=== PATIENT | male | born 1965 | race Caucasian/White ===

== ENCOUNTER 2019-05-17 15:25 | Emergency (ER) | payer OTHER, SELFPAY ==
[2019-05-17 15:35] VITALS: BP 164/90; PULSE 61; RESP 16; TEMP 36.8; O2SAT 98
--- NOTE | 2019-05-17 15:55 | ED.UPPEXIN ---
HPI - Extremity Injury (Upper) General Chief Complaint: Extremity Injury, Upper Stated Complaint: Left fore finger injury Time Seen by Provider: 05/17/19 15:55 Source: patient Mode of arrival: ambulatory Limitations: no limitations History of Present Illness HPI narrative: Lonnie Hayes is a 53 yo male with HTN, seasonal allergies, who had a large wood splinter in his left pointer finger across the palmar distal end, it has become infected. That initially happened 4 days ago. Other Extremity Injury: Left: hand (First finger of left hand) Handedness: right Place: home Severity: moderate Severity scale (1-10): 6 Relieving factors: none Context: laceration Related Data Home Medications Medication Instructions Recorded Confirmed cetirizine 10 mg tablet 10 mg PO DAILY 03/29/19 cholecalciferol (vitamin D3) 1,250 1,250 mcg PO MONTHLY 03/29/19 mcg (50,000 unit) tablet ibuprofen 200 mg tablet 200 mg PO Q6H PRN 03/29/19 Allergies Allergy/AdvReac Type Severity Reaction Status Date / Time No Known Allergies Allergy Unverified 03/29/19 11:13 Review of Systems Review of Systems: Narrative: CONSTITUTIONAL: Denies fever, chills, sweats. EYES: Denies visual changes, redness, discharge. ENT: Denies rhinorrhea, congestion, sore throat, otalgia. CARDIOVASCULAR: Denies chest pain, palpitations, edema. RESPIRATORY: Denies dyspnea, wheezing, cough GASTROINTESTINAL: Denies abdominal pain, nausea, vomiting, diarrhea. GENITOURINARY: Denies dysuria, hematuria, abnormal discharge SKIN: Denies rash or itching. Splinter in left pointer finger with infection NEUROLOGIC: Denies numbness, or focal weakness. PSYCHIATRIC: Denies anxiety or depression. [facility] Past Medical History Medical History Chest pain Cubital tunnel syndrome of both upper extremities Essential hypertension General medical exam Hypogonadism male Low vitamin D level Marijuana abuse Osteoarthritis of hip, unspecified Other terminal supervisor (current) drug therapy Overweight Pain in both hands Pain in left hand Pain of left hip joint Palpitations with regular cardiac rhythm Smoker Uncomplicated alcohol dependence Surgical History Surgical History History of tonsillectomy Family History Family History (Updated 05/17/19 @ 16:09 by Melissa Yang CNP) Other Diabetes mellitus Social History Social History Smoking status: Smoker, status unknown Second hand tobacco smoke exposure: Yes Comments At time of signature, I agree with nursing past medical, surgical, social and family history. There is no relevant family history pertinent to the presenting complaint. Exam Narrative: Exam Narrative: GENERAL: This is a well-nourished, well-developed patient, in mild distress. HEAD: normocephalic, atraumatic. EYES: Sclera clear/white. Vision is grossly intact. EARS: External ears normal, . Hearing grossly intact. NOSE: External nose normal with no obvious nasal discharge, nares without redness, no rhinorrhea. THROAT: Mucous membranes moist,. NECK: Neck supple, non-tender CARDIOVASCULAR: Regular rate and rhythm without murmurs, gallops, or rubs. RESPIRATORY: Clear to auscultation. Breath sounds equal bilaterally. No wheezes, rales, or rhonchi. GASTROINTESTINAL: Abdomen soft, SKIN: warm, intact with no suspicious lesions or rash, good texture and turgor. NEURO: awake, alert, and oriented to person, place and time. There were no obvious focal neurologic abnormalities. Steady gait EXTREMITIES: Normal range of motion. No edema. BACK: Nontender without deformity or crepitance. Course Course Emergency Course: Remove the remainder of splinter from left distal palmar tip, cleansed with normal saline and dressed with Neosporin and dry pressure dressing. Started on Keflex 500 mg 3 times daily x10 da
== END 2019-05-17 16:20 | disposition home or self-care (01) ==
PROVIDERS: Emergency Provider Nurse Practitioner; PCP Family Medicine
DX: L08.9 Local infection of the skin and subcutaneous tissue, unspecified (principal); I10 Essential (primary) hypertension; M16.10 Unilateral primary osteoarthritis, unspecified hip
CPT/HCPCS: 99213; G0463

== ENCOUNTER → 2019-07-18 10:36 | Outpatient (CLI) | payer OTHER, SELFPAY ==
--- NOTE | ~2019-07-18 | XR_ITS ---
EXAMINATION: XR chest 2V DATE: 07/18/2019 10:57 INDICATION: Nicotine dependence TECHNIQUE: PA and lateral views of the chest were obtained. COMPARISON: Chest radiograph dated 07/16/2018 FINDINGS: The lungs are clear with no focal airspace opacities, pulmonary edema, pleural effusion or pneumothor ax. Calcified granuloma versus bone island projecting over the T7 vertebral body on the lateral proje ction. The cardiomediastinal silhouette is normal. Mild thoracic spondylosis. IMPRESSION: 1. Clear lungs. No acute cardiopulmonary disease. Reviewed, dictated and finalized at location A.
== END ==
PROVIDERS: PCP Family Medicine; Visit Provider Family Medicine
DX: F17.200 Nicotine dependence, unspecified, uncomplicated (principal)
CPT/HCPCS: 71046

== ENCOUNTER 2019-07-29 06:13 | Outpatient (CLI) | payer OTHER, SELFPAY | END 2019-07-29 06:14 | disposition home or self-care (01) | PROVIDERS: PCP Family Medicine; Visit Provider Internal Medicine Gastroenterology | DX: Z01.812 Encounter for preprocedural laboratory examination (principal); Z20.828 Contact with and (suspected) exposure to other viral communicable diseases | CPT/HCPCS: 87635; U0003 ==

== ENCOUNTER 2019-07-31 01:03 | Day surgery (SDC) | payer OTHER, SELFPAY ==
[2019-07-26 13:13] VITALS: BMI 30.9
[2019-07-31 10:10] VITALS: BP 159/93; PULSE 88; RESP 20; TEMP 37.2; O2SAT 97
[2019-07-31] MEDS: LACTATED RINGERS 1,000 ML 150 ML IV CONT (10:23)
--- NOTE | 2019-07-31 10:51 | WPDANESEPPF ---
Anes - Initial Pre Proc Eval Procedure: Operation Date: 07/31/19 11:15 Proposed Procedures p Screening Colonoscopy - Young Fonseca MD Date/Time: 07/31/19 10:51 Surgeon: Young Fonseca MD Pre Op Diagnosis: Neoplasm Screening Patient Data Age: 53 Gender: M Height: 5 ft 9 in Weight: 93.4 kg Last Vital Signs Temp 98.9 F 07/31/19 10:10 Pulse 88 07/31/19 10:10 Resp 20 07/31/19 10:10 BP 159/93 H 07/31/19 10:10 Pulse Ox 97 07/31/19 10:10 Allergies Allergy/AdvReac Type Severity Reaction Status Date / Time No Known Allergies Allergy Verified 07/31/19 10:08 Home Medications Medication Instructions Recorded Confirmed Type amlodipine 5 mg tablet 5 mg PO DAILY #90 tablet 07/18/19 07/26/19 Rx cetirizine 10 mg tablet 10 mg PO DAILY #90 tablet 07/18/19 07/26/19 Rx gabapentin 300 mg capsule 300 mg PO DAILY #90 cap 07/18/19 07/26/19 Rx ibuprofen 800 mg tablet 800 mg PO TID PRN #90 tablet 07/18/19 07/26/19 Rx calcium carbonate-vitamin D3 1 cap PO DAILY 07/26/19 07/26/19 History [Calcium 600 with Vitamin D3] ergocalciferol (vitamin D2) 1,250 50,000 unit PO MONTHLY #20 cap 07/26/19 07/26/19 Rx mcg (50,000 unit) capsule peg 3350-electrolytes 236 240 ml PO Q10M #4000 ml 07/30/19 Rx gram-22.74 gram-6.74 gram-5.86 gram solution Patient hx anesthesia problems: none Family hx anesthesia problems: none PMFSH Social History Social History Smoking packs per day: 2.5 Smoking cigarettes per day: 50.0 Years smoked: 46 Smoking pack-years: 115.00 Smoking status: Current every day smoker Tobacco type: cigarettes Second hand tobacco smoke exposure: Yes Alcohol intake: current Drinks per week: 11 Anes - Eval Final PreProcedure Day of Procedure 07/31/19 10:51 Patient weight: normal Heart: regular rate and rhythm Lungs: clear to auscultation Airway: Mallampati scale class II Neurological: alert and oriented Last oral intake: >/= 8 hours ASA classification: III Emergent: no Anesthetic plan: proceed Anesthesia type and monitoring: general GIVS and standard monitoring Informed Consent: The patient's anesthetic plan and its attendant risks and benefits were discussed with the patient/family/POA. Questions were solicited and answers provided to the satisfaction of the patient/family/POA.
--- NOTE | 2019-07-31 11:10 | PM.HPGS ---
History of Present Illness History of Present Illness Consent: Risks, benefits, and alternatives have been discussed and questions answered. Patient agrees to proceed with procedure. Chief complaint: Neoplasm Screening Narrative: Lonnie Hayes is a 53 year old male here for his first screening colonoscopy Review of Systems Constitutional: Constitutional: Denies headache(s) and Denies weakness Eyes: Eyes: Denies blurry vision ENT: Reports Normal hearing present, Denies headache(s) and Denies neck pain Cardiovascular: Cardiovascular: Denies chest pain and Denies dyspnea Respiratory: Respiratory: Denies dyspnea Gastrointestinal: Gastrointestinal: Reports no additional gastrointestinal complaints Genitourinary: Genitourinary: Denies dysuria Musculoskeletal: Musculoskeletal: Denies neck pain Integumentary/Breasts: Skin/Breast: Denies dry skin Neurologic: Reports Normal hearing present, Denies headache(s) and Denies weakness Psychiatric: Psychiatric: Denies anxiety Endocrine: Endocrine: Denies change in body appearance Hematologic/Lymphatic: Hematologic/Lymphatic: Denies easy bleeding Allergic/Immunologic: Allergic/Immunologic: Denies urticaria PMFSH Social History Social History (Reviewed 07/26/19 @ 09:13 by Karime Gage [facility] [address]) Smoking packs per day: 2.5 Smoking cigarettes per day: 50.0 Years smoked: 46 Smoking pack-years: 115.00 Smoking status: Current every day smoker Tobacco type: cigarettes Second hand tobacco smoke exposure: Yes Alcohol intake: current Drinks per week: 11 Meds Home Medications and Allergies Home Medications Medication Instructions Recorded Confirmed Type amlodipine 5 mg tablet 5 mg PO DAILY #90 tablet 07/18/19 07/26/19 Rx cetirizine 10 mg tablet 10 mg PO DAILY #90 tablet 07/18/19 07/26/19 Rx gabapentin 300 mg capsule 300 mg PO DAILY #90 cap 07/18/19 07/26/19 Rx ibuprofen 800 mg tablet 800 mg PO TID PRN #90 tablet 07/18/19 07/26/19 Rx calcium carbonate-vitamin D3 1 cap PO DAILY 07/26/19 07/26/19 History [Calcium 600 with Vitamin D3] ergocalciferol (vitamin D2) 1,250 50,000 unit PO MONTHLY #20 cap 07/26/19 07/26/19 Rx mcg (50,000 unit) capsule peg 3350-electrolytes 236 240 ml PO Q10M #4000 ml 07/30/19 Rx gram-22.74 gram-6.74 gram-5.86 gram solution Allergies Allergy/AdvReac Type Severity Reaction Status Date / Time No Known Allergies Allergy Verified 07/31/19 10:08 Vital Signs Vital Signs - 24 hr 07/31/19 10:10 Temperature 98.9 F Pulse Rate 88 Respiratory Rate 20 Blood Pressure 159/93 H Pulse Oximetry 97 Exam Const: General: comfortable and no acute distress HENMT: General nose exam: Normal nares present Eyes: General: appearance normal, both eyes and all related structures Neck: Neck: no JVD Resp: Auscultation: clear to auscultation bilaterally Cardio: Rate: regular rate Rhythm: regular rhythm GI: Inspection: non-distended GI Palp: Yes Soft to palpation Skin: General skin exam: normal color Neuro: General: gait normal Speech: normal speech Extrem: General: normal to inspection Psych: Mental Status: mental status grossly normal Assessment and Plan Assessment and plan (1) Encounter for screening colonoscopy: Code(s): Z12.11 - Encounter for screening for malignant neoplasm of colon Status: Acute Assessment and Plan: will proceed with colonoscopy (2) Diabetes: Code(s): E11.9 - Type 2 diabetes mellitus without complications Status: Acute
[2019-07-31 11:43] VITALS: BP 116/84; PULSE 103; RESP 16; O2SAT 98
[2019-07-31 11:50] VITALS: BP 116/79; PULSE 88; RESP 16; O2SAT 99
[2019-07-31 12:00] VITALS: BP 140/82; PULSE 68; RESP 16; O2SAT 99
== END 2019-07-31 12:05 | disposition home or self-care (01) ==
PROVIDERS: PCP Family Medicine; Visit Provider Internal Medicine Gastroenterology
PROC: 0DJD8ZZ Inspection of Lower Intestinal Tract, Via Natural or Artificial Opening Endoscopic (ICD-10-PCS; CPT 45378; principal; 2019-07-31 11:15)
DX: Z12.11 Encounter for screening for malignant neoplasm of colon (principal); D12.5 Benign neoplasm of sigmoid colon; K57.30 Diverticulosis of large intestine without perforation or abscess without bleeding; F17.210 Nicotine dependence, cigarettes, uncomplicated
CPT/HCPCS: 45385; 88305; J2704; J7120

== ENCOUNTER 2019-08-16 08:58 | Outpatient (CLI) | payer OTHER, SELFPAY ==
--- NOTE | 2019-08-16 08:59 | ECG_ITS ---
Measurements Intervals [place] Rate: 59 P: 38 SC: 157 QRS: 5 QRSD: 93 T: 31 QT: 411 QTc: 410 Interpretive Statements SINUS BRADYCARDIA BORDERLINE R WAVE PROGRESSION, ANTERIOR LEADS BORDERLINE ECG Electronically Signed On 08-16-2019 9:43:15 CDT by Derrell Snow D.O.
== END 2019-08-16 08:59 | disposition home or self-care (01) ==
LOC: ANHSURGERY 08:59
PROVIDERS: PCP Family Medicine; Visit Provider Surgery
DX: Z01.818 Encounter for other preprocedural examination (principal); K40.90 Unilateral inguinal hernia, without obstruction or gangrene, not specified as recurrent; I10 Essential (primary) hypertension
CPT/HCPCS: 36415; 86850; 86900; 86901; 93005

== ENCOUNTER 2019-08-23 00:17 | Outpatient (CLI) | payer OTHER, SELFPAY ==
[2019-08-23 17:48] LABS: SARS-CoV-2 RNA PCR Negative
== END 2019-08-23 00:18 | disposition home or self-care (01) ==
LOC: ANHCOVIDDT 00:17
PROVIDERS: PCP Family Medicine; Visit Provider Surgery
DX: Z01.812 Encounter for preprocedural laboratory examination (principal); Z20.828 Contact with and (suspected) exposure to other viral communicable diseases
CPT/HCPCS: 87635; C9803; U0003

== ENCOUNTER 2019-08-26 01:31 | Day surgery (SDC) | payer OTHER, SELFPAY ==
[2019-08-26] VITALS (7 sets, daily range): BP systolic 114–146; BP diastolic 61–92; PULSE 55–70; RESP 14–20; TEMP 36.6–37.4; O2SAT 93–100
--- NOTE | 2019-08-26 09:36 | WPDHPUPDATE1 ---
History and Physical Update Update Date/Time: 08/26/19 09:36 History and Physical has been reviewed, including an updated exam of the patient. There are NO changes in the patient's condition. Risks, benefits, and alternatives have been discussed and questions answered. Patient agrees to proceed with procedure.
[2019-08-26] MEDS: LACTATED RINGERS 1,000 ML 30 ML IV CONT ×2 (10:00→12:18)
[2019-08-26] MEDS: IBUPROFEN IV 800 MG/200 ML 800 MG/200 ML BAG 400 MG IVPB (10:05)
--- NOTE | 2019-08-26 10:37 | WPDANESEPPF ---
Anes - Initial Pre Proc Eval Procedure: Operation Date: 08/26/19 11:30 Proposed Procedures p Robotic Assisted, Left Inguinal Hernia Repair With Mesh - Macie Sood MD Date/Time: 08/26/19 10:37 Surgeon: Macie Sood MD Pre Op Diagnosis: incarcerated Left inguinal hernia Patient Data Age: 53 Gender: M Height: 1.75 m Weight: 93.6 kg Last Vital Signs Temp 37.4 C 08/26/19 10:19 Pulse 62 08/26/19 10:19 Resp 20 08/26/19 10:19 BP 138/77 08/26/19 10:19 Pulse Ox 99 08/26/19 10:19 Allergies Allergy/AdvReac Type Severity Reaction Status Date / Time No Known Allergies Allergy Verified 08/14/19 13:02 Home Medications Medication Instructions Recorded Confirmed Type amlodipine 5 mg tablet 5 mg PO DAILY #90 tablet 07/18/19 08/26/19 Rx cetirizine 10 mg tablet 10 mg PO DAILY #90 tablet 07/18/19 08/26/19 Rx gabapentin 300 mg capsule 300 mg PO DAILY #90 cap 07/18/19 08/26/19 Rx ergocalciferol (vitamin D2) 1,250 50,000 unit PO MONTHLY #20 cap 07/26/19 08/14/19 Rx mcg (50,000 unit) capsule ibuprofen 800 mg PO BID PRN 08/14/19 08/26/19 History vitamin B complex 1 tablet PO DAILY 08/14/19 08/26/19 History Patient hx anesthesia problems: none Family hx anesthesia problems: none PMFSH Social History Social History (Updated 08/26/19 @ 10:36 by Neptali Romo DO) Smoking packs per day: 2.5 Smoking cigarettes per day: 50.0 Years smoked: 46 Smoking pack-years: 115.00 Smoking status: Current every day smoker Tobacco type: cigarettes Second hand tobacco smoke exposure: Yes Alcohol intake: current Alcohol use details: 6 pack and 0.5 pint tequilla/day Anes - Eval Final PreProcedure Day of Procedure 08/26/19 10:37 Patient weight: obese Heart: regular rate and rhythm Lungs: clear to auscultation and normal air movement Airway: Mallampati scale class II and other (teeth all implants) Neurological: alert and oriented Last oral intake: >/= 8 hours ASA classification: III Emergent: no Anesthetic plan: proceed Anesthesia type and monitoring: general ETT and standard monitoring Informed Consent: The patient's anesthetic plan and its attendant risks and benefits were discussed with the patient/family/POA. Questions were solicited and answers provided to the satisfaction of the patient/family/POA.
[2019-08-26] MEDS: ceFAZolin 2 GM/D5W 50 ML 2 GM/50 ML BAG IVPB (10:45)
[2019-08-26] MEDS: BUPIVACAINE/EPINEPHRINE 0.5% 30 ML VIAL INFILTRATE (11:40)
--- NOTE | 2019-08-26 12:22 | P.OP_ITS ---
Procedure Note - Detailed Date of procedure: 08/26/19 Pre-op diagnosis: incarcerated Left inguinal hernia Post-op diagnosis: same Procedure performed: robotic assisted left inguinal hernia repair Description of procedure: Patient was brought into the operating room and placed in the supine position. After adequate induction of general anesthesia, the patient was prepped and draped in normal sterile fashion. A time-out was then done to verify the patient's identity, as well as the procedure being performed. Began by making a 8 mm incision in the supraumbilical region, a Veress needle was then placed into the peritoneal cavity. CO2 gas was then insufflated and after adequate pneumoperitoneum was achieved, the Veress needle was removed. I then placed an 8 mm trocar through this incision. I then placed the endoscope through this trocar site and under direct visualization placed 2 further 8 mm ports in the right and left mid abdomen. The [employer] robot was then docked to the 3 trocar sites. I then scrubbed out and went to the robotic console. Upon examining the pelvis, it was noted that the patient had a incarcerated left inguinal hernia with a loop of small intestine. I was able to reduce the small intestine with gentle retraction out of the hernia. Once this was done, I began by making a preperitoneal flap approximately 6 cm superior to the defect. This flap was carried medially past the umbilical ligaments in laterally to the transversalis. It then began dissection of my medial compartment taking this down to the pubic tubercle. I then began the lateral dissection taking this down to the transversalis fascia. Once these compartments were achieved, I began dissection around the cord structures. It was noted at this point that the patient had a indirect hernia. Patient also had a large lipoma the cord. Using careful dissection, was able to reduce the lipoma cord as well separate the indirect hernia off the cord structures. Once this was adequately done, I went ahead and placed a 15 x 10 piece of Pro Guide Foreign Tour mesh into the abdominal cavity. The mesh was carefully positioned, centering the center of the mesh over the indirect defect. Once this was done, I was very satisfied with our tension free repair. I then closed the peritoneal flap with a running 2.0 V Lock suture. The abdomen was then desufflated, and all ports were removed. All incisions were then closed with the 4.0 monocryl suture. Dermabond was placed on each wound. The patient tolerated the procedure well, was extubated in the operating room postoperatively, and will now be transferred to the recovery room in stable condition. Implants: 15 x 10 progrip mesh Anesthesia: GETA Surgeon: Macie Sood MD Estimated blood loss (mL): 5 Drains: No Packing: No Pathology: none sent Complications: No immediate complications Condition: stable Disposition: PACU Findings: indirect LIH c incarcerated small intestine
== END 2019-08-26 13:53 | disposition home or self-care (01) ==
PROVIDERS: PCP Family Medicine; Visit Provider Surgery
PROC: 8E0Y4CZ Robotic Assisted Procedure of Lower Extremity, Percutaneous Endoscopic Approach (ICD-10-PCS; CPT 49650; principal; 2019-08-26 11:30)
DX: K40.30 Unilateral inguinal hernia, with obstruction, without gangrene, not specified as recurrent (principal); F17.210 Nicotine dependence, cigarettes, uncomplicated; E66.9 Obesity, unspecified; Z68.30 Body mass index [BMI] 30.0-30.9, adult
CPT/HCPCS: 49650; S2900; A9270; C1781; J0330; J0690; J1170; J1741; J2001; J2250; J2405; J2704; J3010; J7030; J7120

== ENCOUNTER 2020-09-07 11:15 | Outpatient (CLI) | payer OTHER, SELFPAY ==
[2020-09-07 19:20] LABS: Basophils Absolute Auto 0.1 K/mm3 (0.0-0.1); Eosinophils Absolute Auto 0.2 K/mm3 (0-0.3); Eosinophils Percent Auto 2.1 % (0-4.4); Hematocrit 47.2 % (42.0-52.0); Hemoglobin 15.5 g/dL (14.0-18.0); Lymphocytes Absolute Auto 3.04 K/mm3 (0.9-3.2); Mean Corpuscular HGB Conc 32.8 g/dl (32-36); Mean Corpuscular Hemoglobin 33.9 pg (26-34); Mean Corpuscular Volume 103.3 fl (80-100); Mean Platelet Volume 9.4 fl (7.4-10.4); Monocytes Absolute Auto 1.1 K/mm3 (0.1-0.6); Monocytes Percent Auto 10.3 % (2.6-8.5); Neutrophils Absolute Auto 5.9 K/mm3 (1.3-6.7); Neutrophils Percent Auto 56.6 % (45.5-73.1); Platelet Count Result 235 k/mm3 (150-375); Red Blood Count 4.57 M/mm3 (4.6-6.20); Red Cell Distribution Width 14.8 % (11.5-14.5); White Blood Count 10.5 K/mm3 (4.5-10.0)
[2020-09-07 19:23] LABS: Add Urine Microscopic? YES; Appearance Urine Clear (Clear); Bilirubin Urine 1+ (Negative); Blood Urine Negative (Negative); Color Urine Amber (Yellow); Glucose Urine UA Negative (Negative); Ketones Urine Trace mg/dL (Negative); Leukocyte Esterase Ur Negative LEU/UL (Negative); Mucus Urine Rare /lpf; Nitrate Urine Negative (Negative); Protein Urine 2+ mg/dL (Negative); RBC Urine 0-2 /hpf (0-2); Squamous Epithelial Cell Urine Rare /hpf (Few); WBC Urine 0-3 /hpf
[2020-09-07 19:25] LABS: Alanine Aminotransferase 42 U/L (4-50); Albumin Level 4.3 g/dL (3.5-5.1); Alkaline Phosphatase 117 U/L (38-126); Anion Gap 9 mmol/L (8-16); Aspartate Amino Transferase 58 U/L (17-59); Bilirubin,Total 1.4 mg/dL (0.2-1.3); Blood Urea Nitrogen 12 mg/dL (9-20); CRP 1.2 mg/dL (<1.0); Calcium 9.8 mg/dL (8.4-10.2); Carbon Dioxide 24 mmol/L (22-30); Chloride 106 mmol/L (98-107); Cholesterol 213 mg/dL (0-200); Estimated Glomerular Filt Rate > 60; Glucose 100 mg/dL (75-110); HDL Direct 55 mg/dL; Potassium 4.4 mmol/L (3.4-5.0); Sodium 139 mmol/L (137-145); Triglycerides 96 mg/dL (<150)
[2020-09-07 19:34] LABS: LDL Cholesterol Direct 129 mg/dL
[2020-09-07 19:53] LABS: Prostate Specific Antigen 0.5 ng/mL (< OR = 4.0)
[2020-09-07 20:07] LABS: Vitamin D 25 Hydroxy 18.9 ng/mL
[2020-09-07 20:27] LABS: Folic Acid 9.1 ng/mL (2.76->20)
== END 2020-09-07 11:16 | disposition home or self-care (01) ==
LOC: ANHBWCLAB 11:17
PROVIDERS: PCP Family Medicine; Visit Provider Family Medicine
DX: R79.89 Other specified abnormal findings of blood chemistry (principal); Z12.5 Encounter for screening for malignant neoplasm of prostate; F17.200 Nicotine dependence, unspecified, uncomplicated; I10 Essential (primary) hypertension; Z00.00 Encounter for general adult medical examination without abnormal findings; Z79.899 Other long term (current) drug therapy
CPT/HCPCS: 36415; 80053; 80061; 81001; 82306; 82607; 82746; 84153; 84443; 85025; 86140; G0103

== ENCOUNTER 2021-08-23 12:43 | Outpatient (CLI) | payer OTHER, SELFPAY ==
[2021-08-23 19:13] LABS: Alanine Aminotransferase 75 U/L (6-50); Albumin Level 3.6 g/dL (3.5-5.1); Alkaline Phosphatase 160 U/L (38-126); Anion Gap 5 mmol/L (8-16); Aspartate Amino Transferase 160 U/L (17-59); Bilirubin,Total 0.9 mg/dL (0.2-1.3); Blood Urea Nitrogen 7 mg/dL (9-20); Calcium 8.4 mg/dL (8.4-10.2); Carbon Dioxide 28 mmol/L (22-30); Chloride 105 mmol/L (98-107); Cholesterol 216 mg/dL (0-200); Estimated Glomerular Filt Rate > 60; Glucose 112 mg/dL (65-110); HDL Direct 53 mg/dL; Potassium 3.4 mmol/L (3.4-5.0); Sodium 138 mmol/L (137-145); Triglycerides 122 mg/dL (<150)
[2021-08-23 19:24] LABS: LDL Cholesterol Direct 145 mg/dL
[2021-08-23 19:25] LABS: Basophils Absolute Auto 0.1 K/mm3 (0.0-0.1); Basophils Percent Auto 1.5 % (0.2-1.2); Eosinophils Absolute Auto 0.2 K/mm3 (0-0.3); Eosinophils Percent Auto 2.3 % (0-4.4); Hemoglobin 15.4 g/dL (14.0-18.0); Immature Granulocyte Absolute 0.03 K/mm3 (0.00-0.031); Immature Granulocyte Percent A 0.5 % (0-0.5); Lymphocytes Absolute Auto 2.28 K/mm3 (0.9-3.2); Lymphocytes Percent Auto 34.4 % (18.3-44.2); Mean Corpuscular HGB Conc 34.2 g/dl (32-36); Mean Corpuscular Hemoglobin 35.5 pg (26-34); Mean Corpuscular Volume 103.7 fl (80-100); Mean Platelet Volume 9.9 fl (7.4-10.4); Monocytes Absolute Auto 0.6 K/mm3 (0.1-0.6); Monocytes Percent Auto 9.4 % (2.6-8.5); Neutrophils Absolute Auto 3.4 K/mm3 (1.3-6.7); Neutrophils Percent Auto 51.9 % (45.5-73.1); Platelet Count Result 179 k/mm3 (150-375); Red Blood Count 4.34 M/mm3 (4.6-6.20); Red Cell Distribution Width 14.7 % (11.5-14.5); White Blood Count 6.6 K/mm3 (4.5-10.0)
[2021-08-23 19:28] LABS: Microalbumin Urine Random 35.8 mg/L (0-16.7)
[2021-08-23 19:42] LABS: Vitamin D 25 Hydroxy 20.1 ng/mL
[2021-08-23 20:00] LABS: Creatinine Urine 490.6 mg/dL; MALB Creatinine Ratio 7.3 mg/g (0-30)
[2021-08-23 23:13] LABS: Hemoglobin A1C 5.4 % (<5.7)
[2021-08-27 18:55] LABS: Testosterone Free 27.4 pg/mL (35.0-155.0); Testosterone Total 240 ng/dL (250-1100)
== END 2021-08-23 12:44 | disposition home or self-care (01) ==
PROVIDERS: PCP Family Medicine; Visit Provider Family Medicine
DX: D72.829 Elevated white blood cell count, unspecified (principal); R79.89 Other specified abnormal findings of blood chemistry; E11.9 Type 2 diabetes mellitus without complications
CPT/HCPCS: 36415; 80053; 80061; 82043; 82306; 83036; 84402; 84403; 85025

== ENCOUNTER 2021-08-24 14:42 | Outpatient (CLI) | payer OTHER, SELFPAY ==
[2021-08-24 19:28] LABS: Hepatitis B Surface Antigen Negative (Negative)
[2021-08-24 19:34] LABS: HAV RESULT Negative (Negative); Hepatitis B Core IgM Result Negative (Negative)
[2021-08-24 19:46] LABS: Hepatitis C Virus Antibody Negative (Negative)
== END 2021-08-24 14:43 | disposition home or self-care (01) ==
PROVIDERS: PCP Family Medicine; Visit Provider Family Medicine
DX: R74.8 Abnormal levels of other serum enzymes (principal)
CPT/HCPCS: 36415; 80074

== ENCOUNTER 2021-12-08 10:07 | Outpatient (CLI) | payer OTHER, SELFPAY ==
[2021-12-08 18:54] LABS: Alanine Aminotransferase 46 U/L (6-50); Alkaline Phosphatase 150 U/L (38-126); Aspartate Amino Transferase 109 U/L (17-59); Bilirubin,Total 0.9 mg/dL (0.2-1.3)
[2021-12-10 12:36] LABS: Sex Hormone Binding Globulin 35 nmol/L (22-77)
[2021-12-11 21:50] LABS: Testosterone Free 38.9 pg/mL (35.0-155.0); Testosterone Total 295 ng/dL (250-1100)
[2021-12-12 07:11] LABS: Prolactin 4.5 ng/mL (***)
[2021-12-12 22:05] LABS: PSA, Free 0.19 ng/mL; PSA, Total 0.6 ng/mL (<=4.0)
== END 2021-12-08 10:08 | disposition home or self-care (01) ==
LOC: ANHBWCLAB 10:08
PROVIDERS: PCP Family Medicine; Visit Provider Family Medicine
DX: R74.8 Abnormal levels of other serum enzymes (principal); R79.89 Other specified abnormal findings of blood chemistry
CPT/HCPCS: 36415; 80076; 84146; 84153; 84154; 84270; 84402; 84403

== ENCOUNTER 2022-10-06 07:59 | Outpatient (CLI) | payer OTHER, SELFPAY ==
[2022-10-06 19:49] LABS: Alanine Aminotransferase 41 U/L (6-50); Albumin Level 3.8 g/dL (3.5-5.1); Alkaline Phosphatase 116 U/L (38-126); Aspartate Amino Transferase 115 U/L (17-59); Bilirubin,Total 0.9 mg/dL (0.2-1.3)
[2022-10-06 19:59] LABS: Anion Gap 7 mmol/L (8-16); Blood Urea Nitrogen 8 mg/dL (9-20); Calcium 9.8 mg/dL (8.4-10.2); Carbon Dioxide 28 mmol/L (22-30); Chloride 103 mmol/L (98-107); Cholesterol 207 mg/dL (0-200); Estimated Glomerular Filt Rate > 60; Glucose 101 mg/dL (65-110); HDL Direct 29 mg/dL; Potassium 3.6 mmol/L (3.4-5.0); Sodium 138 mmol/L (137-145); Triglycerides 93 mg/dL (<150)
[2022-10-06 20:03] LABS: Hemoglobin A1C 5.8 % (<5.7)
[2022-10-06 20:10] LABS: LDL Cholesterol Direct 145 mg/dL
[2022-10-06 20:12] LABS: Vitamin D 25 Hydroxy 23.3 ng/mL
[2022-10-06 20:15] LABS: Basophils Absolute Auto 0.1 K/mm3 (0.0-0.1); Basophils Percent Auto 1.4 % (0.2-1.2); Eosinophils Absolute Auto 0.3 K/mm3 (0-0.3); Eosinophils Percent Auto 2.8 % (0-4.4); Hematocrit 49.7 % (42.0-52.0); Immature Granulocyte Absolute 0.05 K/mm3 (0.00-0.031); Immature Granulocyte Percent A 0.5 % (0-0.5); Lymphocytes Absolute Auto 2.79 K/mm3 (0.9-3.2); Lymphocytes Percent Auto 30.2 % (18.3-44.2); Mean Corpuscular HGB Conc 32.2 g/dl (32-36); Mean Corpuscular Hemoglobin 36.7 pg (26-34); Mean Platelet Volume 9.8 fl (7.4-10.4); Monocytes Absolute Auto 0.8 K/mm3 (0.1-0.6); Monocytes Percent Auto 8.4 % (2.6-8.5); Neutrophils Absolute Auto 5.2 K/mm3 (1.3-6.7); Neutrophils Percent Auto 56.7 % (45.5-73.1); Platelet Count Result 275 k/mm3 (150-375); Red Blood Count 4.36 M/mm3 (4.6-6.20); Red Cell Distribution Width 14.5 % (11.5-14.5); White Blood Count 9.3 K/mm3 (4.5-10.0)
[2022-10-06 20:41] LABS: Burr Cells 1+ (NORMAL); Macrocytosis 1+ (NORMAL); Platelet Estimate Adequate (Adequate); Schistocytes None Seen (NORMAL)
[2022-10-06 21:00] LABS: Folic Acid 8.7 ng/mL (2.76->20)
[2022-10-11 17:23] LABS: Testosterone Free 39.9 pg/mL (35.0-155.0); Testosterone Total 264 ng/dL (250-1100)
== END 2022-10-06 08:00 | disposition home or self-care (01) ==
PROVIDERS: Nurse Practitioner Adult Health; PCP Family Medicine; Visit Provider Family Medicine
DX: R79.89 Other specified abnormal findings of blood chemistry (principal); R74.8 Abnormal levels of other serum enzymes; I10 Essential (primary) hypertension; E66.9 Obesity, unspecified; F10.10 Alcohol abuse, uncomplicated
CPT/HCPCS: 36415; 80048; 80061; 80076; 82306; 82607; 82746; 83036; 84402; 84403; 85025

== ENCOUNTER 2023-04-06 08:28 | Outpatient (CLI) | payer OTHER, SELFPAY ==
[2023-04-06 19:08] LABS: Basophils Absolute Auto 0.1 K/mm3 (0.0-0.1); Basophils Percent Auto 1.4 % (0.2-1.2); Eosinophils Absolute Auto 0.2 K/mm3 (0-0.3); Eosinophils Percent Auto 3.5 % (0-4.4); Hematocrit 49.3 % (42.0-52.0); Hemoglobin 15.8 g/dL (14.0-18.0); Immature Granulocyte Absolute 0.04 K/mm3 (0.00-0.031); Immature Granulocyte Percent A 0.6 % (0-0.5); Lymphocytes Percent Auto 36.2 % (18.3-44.2); Mean Corpuscular Hemoglobin 34.4 pg (26-34); Mean Corpuscular Volume 107.4 fl (80-100); Mean Platelet Volume 9.6 fl (7.4-10.4); Monocytes Absolute Auto 0.8 K/mm3 (0.1-0.6); Neutrophils Absolute Auto 3.3 K/mm3 (1.3-6.7); Neutrophils Percent Auto 47.3 % (45.5-73.1); Platelet Count Result 199 k/mm3 (150-375); Red Blood Count 4.59 M/mm3 (4.6-6.20); Red Cell Distribution Width 14.2 % (11.5-14.5); White Blood Count 6.9 K/mm3 (4.5-10.0)
[2023-04-06 19:27] LABS: Alanine Aminotransferase 27 U/L (6-50); Albumin Level 4.3 g/dL (3.5-5.1); Alkaline Phosphatase 119 U/L (38-126); Anion Gap 10 mmol/L (8-16); Aspartate Amino Transferase 57 U/L (17-59); Bilirubin,Total 0.7 mg/dL (0.2-1.3); Blood Urea Nitrogen 6 mg/dL (9-20); Calcium 9.6 mg/dL (8.4-10.2); Carbon Dioxide 22 mmol/L (22-30); Chloride 108 mmol/L (98-107); Cholesterol 210 mg/dL (0-200); Estimated Glomerular Filt Rate > 60; Glucose 102 mg/dL (65-110); HDL Direct 47 mg/dL; Magnesium 1.9 mg/dL (1.6-2.3); Potassium 3.7 mmol/L (3.4-5.0); Sodium 140 mmol/L (137-145); Triglycerides 97 mg/dL (<150)
[2023-04-06 19:31] LABS: Macrocytosis 1+ (NORMAL); Platelet Estimate Adequate (Adequate); Schistocytes None Seen (NORMAL)
[2023-04-06 19:38] LABS: LDL Cholesterol Direct 135 mg/dL
[2023-04-06 19:44] LABS: Vitamin D 25 Hydroxy 27.6 ng/mL
[2023-04-06 19:53] LABS: Hemoglobin A1C 5.8 % (<5.7)
== END 2023-04-06 08:29 | disposition home or self-care (01) ==
LOC: ANHBWCLAB 08:30
PROVIDERS: PCP Nurse Practitioner Adult Health; Visit Provider Nurse Practitioner Adult Health
DX: R79.89 Other specified abnormal findings of blood chemistry (principal); I10 Essential (primary) hypertension; E11.9 Type 2 diabetes mellitus without complications; F10.10 Alcohol abuse, uncomplicated
CPT/HCPCS: 36415; 80048; 80061; 80076; 82306; 83036; 83735; 84443; 85025

== ENCOUNTER 2024-04-10 15:35 | Outpatient (CLI) | payer OTHER, SELFPAY ==
--- OUTSIDE RECORDS SUMMARY | 2024-04-10 16:20 | XMS_ITS | Patient Health Summary ---
Author Organization [facility] Address [address] [place] [address] Care Team Providers Care Outbound Sales Specialist Name Role Phone Tavia Osman Primary Care Provider [phone] Note from [facility],non-owned Affiliates and Associated Physician Practices is amultiple site organization consisting of ambulatory clinics and hospital sitesin [place], [place], [place] and [place]. This disclosure is being madepursuant to the Care Everywhere program and may not contain all information available regarding this patient. Last updated 17.[facility] Allergies No known active allergies Medications * Be aware that medications may not be up to date on this document. Alwaysverify current medications with the patient. * Ergocalciferol (VITAMIN D2 PO)(Started 04/15/2020) Take 1,250 mcg by mouth once daily * amLODIPine (NORVASC) 5 MG tablet(Started 09/09/2020) Take 5 mg by mouth once daily * cetirizine (ZYRTEC) 10 MG tablet(Started 11/02/2020) * gabapentin (NEURONTIN) 300 MG capsule(Started 11/02/2020) * hydroCHLOROthiazide (HYDRODIURIL) 12.5 MG(Started 11/02/2020) * ibuprofen (MOTRIN) 800 MG tablet(Started 11/19/2020) * potassium chloride ER (KLOR-CON) 10 MEQ tablet(Started 11/02/2020) * Cyanocobalamin (B-12 PO) * cyclobenzaprine (FLEXERIL) 10 MG tablet(Started 11/23/2020) Take 1 (one) tablet by mouth at bedtime 2 refills by 11/23/2021 * allopurinol (ZYLOPRIM) 100 MG tablet(Started 12/03/2020) Take 1 (one) tablet by mouth once daily 4 refills by 12/03/2021 Active Problems Problem Noted Date Diagnosed Date Arthralgia 11/24/2020 Other specified abnormal immunological findings in serum 11/24/2020 Immunizations * Covid Moderna primary monovalent 12+ yr 0.5mL(Given 08/18/2020, 07/21/2020) Social History Tobacco Use Types Packs/Day Years Used Date Smoking Tobacco: Heavy Smoker Cigarettes 2 15 Smokeless Tobacco: Never Alcohol Use Standard Drinks/Week Comments Yes 56 (1 standard drink = 0.6 oz pu re alcohol) approx. 8 per day PHQ-2 Answer Date Recorded PHQ2 TOTAL SCORE 2 11/23/2020 Sex and Gender Information Value Date Recorded Sex Assigned at Not on file Gender Identity Not on file Sexual Orientation Not on file Last Filed Vital Signs Vital Sign Reading Time Taken Comments Blood Pressure 170/100 11/23/2020 12:42 PM CDT Pulse - - Temperature 36.9 ??C (98.4 ??F) 11/23/2020 12:42 PM C DT Respiratory Rate - - Oxygen Saturation - - Inhaled Oxygen Concentration - - Weight 120.2 kg (265 lb) 11/23/2020 12:42 PM CDT Height 175.3 cm (5' 9 ) 11/23/2020 12:42 PM CDT Body Mass Index 39.13 11/23/2020 12:42 PM CDT Procedures * MRI SACRUM SI JOINTS W WO CONT(Performed 12/19/2020) Performed for Arthralgia, unspecified joint, SI (sacroiliac) pain * CREATININE - POCT INTERFACED(Performed 12/19/2020) * XR SHOULDER RIGHT 2VW OR MORE(Performed 11/24/2020) Performed for Arthralgia, unspecified joint, Other specified abnormal immunological findings in serum * XR SHOULDER LEFT 2VW OR MORE(Performed 11/24/2020) Performed for Arthralgia, unspecified joint, Other specified abnormal immunological findings in serum * XR PELVIS W BILAT HIP 2VW(Performed 11/24/2020) Performed for Arthralgia, unspecified joint, Other specified abnormal immunological findings in serum * XR KNEE RIGHT 3VW(Performed 11/24/2020) Performed for Arthralgia, unspecified joint, Other specified abnormal immunological findings in serum * XR KNEE LEFT 3VW(Performed 11/24/2020) Performed for Arthralgia, unspecified joint, Other specified abnormal immunological findings in serum * XR FOOT LEFT 2VW(Performed 11/24/2020) Performed for Arthralgia, unspecified joint, Other specified abnormal immunological findings in serum * XR FOOT RIGHT 2VW(Performed 11/24/2020) Performed for Arthralgia, unspecified joint, Other specified abnormal immunological findings in serum * XR HAND RIGHT 2VW(Performed 11/24/2020) Performed for Arthralgia, unspecified joint, Other specified abnormal immunological findings in serum * XR HAND LEFT 2VW(Performed 11/24/2020) Performed for Arthralgia, unspecified joint, Other specified abnormal immunological findings in serum * SS-A (SJOGREN'S) 52+60 ANTIBODIES(Performed 11/24/2020) Performed for Other specified abnormal immunological findings in serum, Arthralgia, unspecified joint * HEPATITIS C ANTIBODY(Performed 11/24/2020) Performed for Arthralgia, unspecified joint, Other specified abnormal immunological findings in serum * HEPATITIS B CORE ANTIBODY TOTAL(Performed 11/24/2020) Performed for Arthralgia, unspecified joint, Other specified abnormal immunological findings in serum * HEPATITIS B SURFACE ANTIBODY(Performed 11/24/2020) Performed for Arthralgia, unspecified joint, Other specified abnormal immunological findings in serum * QUANTIFERON-TB GOLD PLUS 4-TUBE(Performed 11/24/2020) Performed for Arthralgia, unspecified joint, Other specified abnormal immunological findings in serum * URIC ACID BLOOD(Performed 11/24/2020) Performed for Arthralgia, unspecified joint, Other specified abnormal immunological findings in serum * SS-B (SJOGREN'S) ANTIBODY(Performed 11/24/2020) Performed for Arthralgia, unspecified joint, Other specified abnormal immunological findings in serum * RHEUMATOID FACTOR BLOOD QUANTITATIVE(Performed 11/24/2020) Performed for Arthralgia, unspecified joint, Other specified abnormal immunological findings in serum * CYCLIC CITRUL PEPTIDE ANTIBODY IGG/IGA (CCP)(Performed 11/24/2020) Performed for Arthralgia, unspecified joint, Other specified abnormal immunological findings in serum * URINALYSIS W/MICROSCOPIC NO CULTURE(Performed 11/24/2020) Performed for Arthralgia, unspecified joint, Other specified abnormal immunological findings in serum * CBC W AUTO DIFFERENTIAL(Performed 11/24/2020) Performed for Arthralgia, unspecified joint, Other specified abnormal immunological findings in serum * ERYTHROCYTE SEDIMENTATION RATE(Performed 11/24/2020) Performed for Arthralgia, unspecified joint, Other specified abnormal immunological findings in serum * C-REACTIVE PROTEIN(Performed 11/24/2020) Performed for Arthralgia, unspecified joint, Other specified abnormal immunological findings in serum * COMPREHENSIVE METABOLIC PANEL(Performed 11/24/2020) Performed for Arthralgia, unspecified joint, Other specified abnormal immunological findings in serum Results * MRI SACRUM SI JOINTS WWO CONT (12/19/2020 8:41 AM CDT) Anatomical Region Laterality Modality Pelvis Magnetic Resonan ce 12/21/2020 7:43 AM CDT Impressions 12/21/2020 8:01 AM CDT IMPRESSION: 1. Findings consistent with sacroiliac joint osteoarthritis, left greater than right. 2. 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 The lesion is not well visualized on radiographs, therefore follow-up with right hip MRI with and without contrast is recommended in 6 months to ensure stability. 3. Moderate left and mild right gluteus medius tendinosis. 4. Left trochanteric bursitis. 5. Moderate bilateral proximal hamstring tendinosis. 6. A 3.5 cm exophytic right kidney lesion, likely a cyst. This report was electronically signed by NEPTALI NIEVES MD ??on 12/21/2020 8:01 AM . Narrative 12/21/2020 8:01 AM CDT Exam: ??MRI SACRUM SI JOINTS WWO CONT History: ??M25.50: Arthralgia, unspecified joint M53.3: SI (sacroiliac) pain TECHNIQUE: Images were obtained in multiple planes using multiple sequences before and after administration of 10 mL Gadavist contrast according to the sacroiliac joint protocol. Comparison: Pelvic radiograph dated 11/24/2020. Findings: There is moderate anterior osteophyte formation at the mid to upper aspect of the left sacroiliac joint. There is mild associated sclerosis, bone marrow edema, and adjacent soft tissue edema. This corresponds to the area of sclerosis demonstrated on the radiograph. No bone lesion is identified at this location. There are similar changes to a mild degree at the mid to upper aspect of the right sacroiliac joint. Small subchondral cysts are seen in the posterior aspects of the iliac bones at the inferior aspects of the sacroiliac joints (series 4 image 23-24). ??These findings likely represent osteoarthritis. No erosions are seen. There is ankylosis. There is otherwise no bone marrow edema or abnormal enhancement to suggest inflammatory sacroiliitis of either joint. There is no pelvic fracture. Bone marrow signal is heterogeneous and moderately decreased on the T1-weighted images which may reflect red marrow. There is no hip effusion on either side. There is no femoral head avascular necrosis. There is no hip arthritis. A 1.4 x 0.9 cm bone lesion is present in the intertrochanteric region of the right femur (series 3 image 24). It is mildly lobulated and is hyperintense on the T2-weighted images peripherally with central hypointensity. The lesion is visible on the wide afacl-pi-qeuk T2 and STIR images but is not included on the post contrast imaging. There is moderate increased signal intensity within the proximal hamstring tendons consistent with. There is edema and small amount of fluid adjacent to the left greater trochanter consistent with trochanteric bursitis. There is increased signal within the left gluteus medius tendon consistent with moderate tendinosis, and more mild signal change in the right gluteus medius tendon. There is no free pelvic fluid or lymphadenopathy. On the wide gfpyk-ac-mzkh coronal STIR images at 3.5 cm exophytic lesion is seen arising from the lower pole of the right kidney (series 3 image 17), likely a cyst. Procedure Note Neptali Nieves MD - 12/21/2020 Exam: MRI SACRUM SI JOINTS WWO CONT History: M25.50: Arthralgia, unspecified joint M53.3: SI (sacroiliac) pain TECHNIQUE: Images were obtained in multiple planes using multiple sequences before and after administration of 10 mL Gadavist contrast according to the sacroiliac joint protocol. Comparison: Pelvic radiograph dated 11/24/2020. Findings: There is moderate anterior osteophyte formation at the mid to upperaspect of the left sacroiliac joint. There is mild associated sclerosis, bone marrow edema, and adjacent soft tissue edema. This corresponds to thearea of sclerosis demonstrated on the radiograph. No bone lesion isidentified at this location. There are similar changes to a mild degree at the midto upper aspect of the right sacroiliac joint. Small subchondral cysts are seen in the posterior aspects of the iliac bones at the inferior aspects of the sacroiliac joints (series 4 image 23-24). These findings likely represent osteoarthritis. No erosions are seen. There is ankylosis.There is otherwise no bone marrow edema or abnormal enhancement to suggest inflammatory sacroiliitis of either joint. There is no pelvic fracture. Bone marrow signal is heterogeneous and moderately decreased on the T1-weighted images which may reflect red marrow. There is no hip effusion on either side. There is no femoral head avascular necrosis. There is no hip arthritis. A 1.4 x 0.9 cm bone lesion is present in the intertrochanteric region of the right femur (series 3 image 24). It is mildly lobulated and is hyperintense on the T2-weighted images peripherally with central hypointensity. The lesion is visible on the wide oiest-fl-eafm T2 andSTIR images but is not included on the post contrast imaging. There is moderate increased signal intensity within the proximalhamstring tendons consistent with. There is edema and small amount of fluidadjacent to the left greater trochanter consistent with trochanteric bursitis. There is increased signal within the left gluteus medius tendonconsistent with moderate tendinosis, and more mild signal change in the rightgluteus medius tendon. There is no free pelvic fluid or lymphadenopathy. On the wide cczpq-fg-ipam coronal STIR images at 3.5 cm exophytic lesion is seen arising from the lower pole of the right kidney (series 3 image 17), likely a cyst. IMPRESSION: 1. Findings consistent with sacroiliac joint osteoarthritis, leftgreater than right. 2. 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 The lesion is not well visualized on radiographs, therefore follow-up with right hip MRI with and without contrast is recommended in6 months to ensure stability. 3. Moderate left and mild right gluteus medius tendinosis. 4. Left trochanteric bursitis. 5. Moderate bilateral proximal hamstring tendinosis. 6. A 3.5 cm exophytic right kidney lesion, likely a cyst. This report was electronically signed by NEPTALI NIEVES MD on 12/21/2020 8:01 AM . Christel Ramos MD MR ORDERABLES * CREATININE - POCT INTERFACED (12/19/2020 7:47 AM CDT) Creatinine POCT 0.80 0.30 - 1.30 mg/dL 12/19/2020 10:36 AM CDT [facility] eGFR >60 >60 mL/min/1.7 3 m2 12/19/2020 10:36 AM CDT [facility] Blood BLOOD SPECIMEN / Unknown 12/19/2020 7:47 AM CDT 12/19/2020 10:36 AM CDT Christel Ramos MD LAB - POINT OF CARE ORDERABLES Performing Organization Address City/State/[facility] Co de Phone Number [address] [id number], [facility] [phone] * XR KNEE RIGHT 3VW (11/24/2020 10:24 AM CDT) Anatomical Region Laterality Modality Lower Extremity Radiographic Shauna ging 11/24/2020 10:2 5 AM CDT Impressions 11/24/2020 11:00 AM CDT IMPRESSION: 1. Right and left shoulders: Mild acromioclavicular osteoarthritis bilaterally. 2. Right and left knees: Normal. 3. Right and left hands: Normal. 4. Right foot: Mild osteoarthritis at the first metatarsophalangeal joint. 5. Left foot: Chronic healed fracture of the fifth proximal phalanx. No significant arthritis. 6. Pelvis and bilateral hips: Normal hips. A 3 cm focal area of sclerosis in region of the mid to upper aspect of the left sacroiliac joint. Differential diagnosis includes joint related sclerosis (osteoarthritis or sacroiliitis) versus a sclerotic bone lesion. Recommend comparison to prior imaging of this area, if available. Otherwise MRI of the pelvis with and without contrast could be performed for characterization. Alternatively follow-up radiographs would be recommended in 3 months to ensure stability. Dictated by Daniel Garcia MD (certified residential medication aide). I, Dr. NEPTALI NIEVES MD have personally reviewed and interpreted this examination/study. This report was electronically signed by NEPTALI NIEVES MD ??on 11/24/2020 11:00 AM . Narrative 11/24/2020 11:00 AM CDT EXAMINATION: 1.XR SHOULDER RIGHT 3VW 2.XR SHOULDER LEFT 3VW 3.XR PELVIS W BILAT HIP 2VW 4.XR KNEE RIGHT 3VW 5.XR KNEE LEFT 3VW 6.XR FOOT LEFT 2VW 7.XR FOOT RIGHT 2VW 8.XR HAND LEFT 2VW 9.XR HAND RIGHT 2VW HISTORY: M25.50: Arthralgia, unspecified joint R76.8: Other specified abnormal immunological findings in serum COMPARISON: No prior study is available for comparison. FINDINGS: Right shoulder: The osseous structures are intact without acute fracture. Small cyst is demonstrated in the humeral head. The glenohumeral and acromioclavicular joints are in anatomic alignment. Mild osteoarthritis of the acromioclavicular joint. Bone density and texture are normal. ??No erosions demonstrated. 4 mm sclerotic lesion in the proximal humerus is consistent with a bone island. Left shoulder: The osseous structures are intact without acute fracture. The glenohumeral and acromioclavicular joints are in anatomic alignment. Mild osteoarthritis of the acromioclavicular joint. Bone density and texture are normal. ??No erosions demonstrated. Right hand: The osseous structures are intact and well aligned without acute fracture or dislocation. The joint spaces are preserved. Bone density and texture are normal. No erosions demonstrated.Diffuse soft tissue swelling is present. Left hand: The osseous structures are intact and well aligned without acute fracture or dislocation. The joint spaces are preserved. Bone density and texture are normal. No erosions demonstrated.Diffuse soft tissue swelling is present. Pelvis with bilateral hips: There is no fracture or dislocation of either hip. The joint spaces are normal. There are no erosions. The pelvic radiograph demonstrates no fracture. A 3 cm focal area of sclerosis is seen in the region of the mid to upper left sacroiliac joint. The pubic symphysis is normal. Right knee: The osseous structures are intact and well aligned without acute fracture or dislocation. The knee joint space is preserved. No joint effusion is seen. Bone density and texture are normal. Left knee: The osseous structures are intact and well aligned without acute fracture or dislocation. The knee joint space is preserved. No joint effusion is seen. No erosions demonstrated.Bone density and texture are normal. Right foot: The osseous structures are intact and well aligned without acute fracture or dislocation. Mild osteoarthritis of the first metatarsophalangeal joint. Otherwise the joint spaces are preserved. Bone density and texture are normal. No erosions demonstrated. No soft tissue swelling is present. Left foot: The osseous structures are intact and well aligned without acute fracture or dislocation. There is mild deformity of the fifth toe proximal phalanx consistent with a chronic healed fracture. Small osteophyte demonstrated at the dorsal aspect of the talus. The joint spaces are preserved. Bone density and texture are normal. No soft tissue swelling is present. Procedure Note Neptali Nieves MD - 11/24/2020 EXAMINATION: 1.XR SHOULDER RIGHT 3VW 2.XR SHOULDER LEFT 3VW 3.XR PELVIS W BILAT HIP 2VW 4.XR KNEE RIGHT 3VW 5.XR KNEE LEFT 3VW 6.XR FOOT LEFT 2VW 7.XR FOOT RIGHT 2VW 8.XR HAND LEFT 2VW 9.XR HAND RIGHT 2VW HISTORY: M25.50: Arthralgia, unspecified joint R76.8: Other specified abnormal immunological findings in serum COMPARISON: No prior study is available for comparison. FINDINGS: Right shoulder: The osseous structures are intact without acute fracture. Small cyst is demonstrated in the humeral head. The glenohumeral and acromioclavicular joints are in anatomic alignment. Mild osteoarthritis of the acromioclavicular joint. Bone density and texture are normal. Noerosions demonstrated. 4 mm sclerotic lesion in the proximal humerus isconsistent with a bone island. Left shoulder: The osseous structures are intact without acute fracture. Theglenohumeral and acromioclavicular joints are in anatomic alignment. Mild osteoarthritis of the acromioclavicular joint. Bone density and texture are normal. No erosions demonstrated. Right hand: The osseous structures are intact and well aligned without acutefracture or dislocation. The joint spaces are preserved. Bone density and texture are normal. No erosions demonstrated.Diffuse soft tissue swelling is present. Left hand: The osseous structures are intact and well aligned without acutefracture or dislocation. The joint spaces are preserved. Bone density and texture are normal. No erosions demonstrated.Diffuse soft tissue swelling is present. Pelvis with bilateral hips: There is no fracture or dislocation of either hip. The joint spaces are normal. There are no erosions. The pelvic radiograph demonstrates no fracture. A 3 cm focal area of sclerosis is seen in the region of the mid to upper left sacroiliacjoint. The pubic symphysis is normal. Right knee: The osseous structures are intact and well aligned without acutefracture or dislocation. The knee joint space is preserved. No joint effusion is seen. Bone density and texture are normal. Left knee: The osseous structures are intact and well aligned without acutefracture or dislocation. The knee joint space is preserved. No joint effusion is seen. No erosions demonstrated.Bone density and texture are normal. Right foot: The osseous structures are intact and well aligned without acutefracture or dislocation. Mild osteoarthritis of the first metatarsophalangeal joint. Otherwise the joint spaces are preserved. Bone density andtexture are normal. No erosions demonstrated. No soft tissue swelling ispresent. Left foot: The osseous structures are intact and well aligned without acutefracture or dislocation. There is mild deformity of the fifth toe proximalphalanx consistent with a chronic healed fracture. Small osteophyte demonstrated at the dorsal aspect of the talus. The joint spaces are preserved. Bone density and texture are normal. No soft tissue swelling is present. IMPRESSION: 1. Right and left shoulders: Mild acromioclavicular osteoarthritis bilaterally. 2. Right and left knees: Normal. 3. Right and left hands: Normal. 4. Right foot: Mild osteoarthritis at the first metatarsophalangealjoint. 5. Left foot: Chronic healed fracture of the fifth proximal phalanx. No significant arthritis. 6. Pelvis and bilateral hips: Normal hips. A 3 cm focal area ofsclerosis in region of the mid to upper aspect of the left sacroiliac joint. Differential diagnosis includes joint related sclerosis (osteoarthritisor sacroiliitis) versus a sclerotic bone lesion. Recommend comparison to prior imaging of this area, if available. Otherwise MRI of the pelviswith and without contrast could be performed for characterization. Alternatively follow-up radiographs would be recommended in 3 months to ensure stability. Dictated by Daniel Garcia MD (certified residential medication aide). IDr. NEPTALI MD have personally reviewed and interpreted this examination/study. This report was electronically signed by NEPTALI NIEVES MD on11/24/2020 11:00 AM . Christel Ramos MD DIAGNOSTIC IMAG ING ORDERABLES * XR FOOT RIGHT 2VW (11/24/2020 10:24 AM CDT) Anatomical Region Laterality Modality Ankle / Foot Radiographic Shauna ging 11/24/2020 10:2 5 AM CDT Impressions 11/24/2020 11:00 AM CDT IMPRESSION: 1. Right and left shoulders: Mild acromioclavicular osteoarthritis bilaterally. 2. Right and left knees: Normal. 3. Right and left hands: Normal. 4. Right foot: Mild osteoarthritis at the first metatarsophalangeal joint. 5. Left foot: Chronic healed fracture of the fifth proximal phalanx. No significant arthritis. 6. Pelvis and bilateral hips: Normal hips. A 3 cm focal area of sclerosis in region of the mid to upper aspect of the left sacroiliac joint. Differential diagnosis includes joint related sclerosis (osteoarthritis or sacroiliitis) versus a sclerotic bone lesion. Recommend comparison to prior imaging of this area, if available. Otherwise MRI of the pelvis with and without contrast could be performed for characterization. Alternatively follow-up radiographs would be recommended in 3 months to ensure stability. Dictated by Daniel Garcia MD (certified residential medication aide). Dr. NEPTALI Spivey MD have personally reviewed and interpreted this examination/study. This report was electronically signed by NEPTALI NIEVES MD ??on 11/24/2020 11:00 AM . Narrative 11/24/2020 11:00 AM CDT EXAMINATION: 1.XR SHOULDER RIGHT 3VW 2.XR SHOULDER LEFT 3VW 3.XR PELVIS W BILAT HIP 2VW 4.XR KNEE RIGHT 3VW 5.XR KNEE LEFT 3VW 6.XR FOOT LEFT 2VW 7.XR FOOT RIGHT 2VW 8.XR HAND LEFT 2VW 9.XR HAND RIGHT 2VW HISTORY: M25.50: Arthralgia, unspecified joint R76.8: Other specified abnormal immunological findings in serum COMPARISON: No prior study is available for comparison. FINDINGS: Right shoulder: The osseous structures are intact without acute fracture. Small cyst is demonstrated in the humeral head. The glenohumeral and acromioclavicular joints are in anatomic alignment. Mild osteoarthritis of the acromioclavicular joint. Bone density and texture are normal. ??No erosions demonstrated. 4 mm sclerotic lesion in the proximal humerus is consistent with a bone island. Left shoulder: The osseous structures are intact without acute fracture. The glenohumeral and acromioclavicular joints are in anatomic alignment. Mild osteoarthritis of the acromioclavicular joint. Bone density and texture are normal. ??No erosions demonstrated. Right hand: The osseous structures are intact and well aligned without acute fracture or dislocation. The joint spaces are preserved. Bone density and texture are normal. No erosions demonstrated.Diffuse soft tissue swelling is present. Left hand: The osseous structures are intact and well aligned without acute fracture or dislocation. The joint spaces are preserved. Bone density and texture are normal. No erosions demonstrated.Diffuse soft tissue swelling is present. Pelvis with bilateral hips: There is no fracture or dislocation of either hip. The joint spaces are normal. There are no erosions. The pelvic radiograph demonstrates no fracture. A 3 cm focal area of sclerosis is seen in the region of the mid to upper left sacroiliac joint. The pubic symphysis is normal. Right knee: The osseous structures are intact and well aligned without acute fracture or dislocation. The knee joint space is preserved. No joint effusion is seen. Bone density and texture are normal. Left knee: The osseous structures are intact and well aligned without acute fracture or dislocation. The knee joint space is preserved. No joint effusion is seen. No erosions demonstrated.Bone density and texture are normal. Right foot: The osseous structures are intact and well aligned without acute fracture or dislocation. Mild osteoarthritis of the first metatarsophalangeal joint. Otherwise the joint spaces are preserved. Bone density and texture are normal. No erosions demonstrated. No soft tissue swelling is present. Left foot: The osseous structures are intact and well aligned without acute fracture or dislocation. There is mild deformity of the fifth toe proximal phalanx consistent with a chronic healed fracture. Small osteophyte demonstrated at the dorsal aspect of the talus. The joint spaces are preserved. Bone density and texture are normal. No soft tissue swelling is present. Procedure Note Neptali Nieves MD - 11/24/2020 EXAMINATION: 1.XR SHOULDER RIGHT 3VW 2.XR SHOULDER LEFT 3VW 3.XR PELVIS W BILAT HIP 2VW 4.XR KNEE RIGHT 3VW 5.XR KNEE LEFT 3VW 6.XR FOOT LEFT 2VW 7.XR FOOT RIGHT 2VW 8.XR HAND LEFT 2VW 9.XR HAND RIGHT 2VW HISTORY: M25.50: Arthralgia, unspecified joint R76.8: Other specified abnormal immunological findings in serum COMPARISON: No prior study is available for comparison. FINDINGS: Right shoulder: The osseous structures are intact without acute fracture. Small cyst is demonstrated in the humeral head. The glenohumeral and acromioclavicular joints are in anatomic alignment. Mild osteoarthritis of the acromioclavicular joint. Bone density and texture are normal. Noerosions demonstrated. 4 mm sclerotic lesion in the proximal humerus isconsistent with a bone island. Left shoulder: The osseous structures are intact without acute fracture. Theglenohumeral and acromioclavicular joints are in anatomic alignment. Mild osteoarthritis of the acromioclavicular joint. Bone density and texture are normal. No erosions demonstrated. Right hand: The osseous structures are intact and well aligned without acutefracture or dislocation. The joint spaces are preserved. Bone density and texture are normal. No erosions demonstrated.Diffuse soft tissue swelling is present. Left hand: The osseous structures are intact and well aligned without acutefracture or dislocation. The joint spaces are preserved. Bone density and texture are normal. No erosions demonstrated.Diffuse soft tissue swelling is present. Pelvis with bilateral hips: There is no fracture or dislocation of either hip. The joint spaces are normal. There are no erosions. The pelvic radiograph demonstrates no fracture. A 3 cm focal area of sclerosis is seen in the region of the mid to upper left sacroiliacjoint. The pubic symphysis is normal. Right knee: The osseous structures are intact and well aligned without acutefracture or dislocation. The knee joint space is preserved. No joint effusion is seen. Bone density and texture are normal. Left knee: The osseous structures are intact and well aligned without acutefracture or dislocation. The knee joint space is preserved. No joint effusion is seen. No erosions demonstrated.Bone density and texture are normal. Right foot: The osseous structures are intact and well aligned without acutefracture or dislocation. Mild osteoarthritis of the first metatarsophalangeal joint. Otherwise the joint spaces are preserved. Bone density andtexture are normal. No erosions demonstrated. No soft tissue swelling ispresent. Left foot: The osseous structures are intact and well aligned without acutefracture or dislocation. There is mild deformity of the fifth toe proximalphalanx consistent with a chronic healed fracture. Small osteophyte demonstrated at the dorsal aspect of the talus. The joint spaces are preserved. Bone density and texture are normal. No soft tissue swelling is present. IMPRESSION: 1. Right and left shoulders: Mild acromioclavicular osteoarthritis bilaterally. 2. Right and left knees: Normal. 3. Right and left hands: Normal. 4. Right foot: Mild osteoarthritis at the first metatarsophalangealjoint. 5. Left foot: Chronic healed fracture of the fifth proximal phalanx. No significant arthritis. 6. Pelvis and bilateral hips: Normal hips. A 3 cm focal area ofsclerosis in region of the mid to upper aspect of the left sacroiliac joint. Differential diagnosis includes joint related sclerosis (osteoarthritisor sacroiliitis) versus a sclerotic bone lesion. Recommend comparison to prior imaging of this area, if available. Otherwise MRI of the pelviswith and without contrast could be performed for characterization. Alternatively follow-up radiographs would be recommended in 3 months to ensure stability. Dictated by Daniel Garcia MD (certified residential medication aide). I, Dr. NEPTALI NIEVES MD have personally reviewed and interpreted this examination/study. This report was electronically signed by NEPTALI NIEVES MD on11/24/2020 11:00 AM . Christel Rojas Ramos MD DIAGNOSTIC IMAG ING ORDERABLES * XR FOOT LEFT 2VW (11/24/2020 10:24 AM CDT) Anatomical Region Laterality Modality Ankle / Foot Radiographic Shauna ging 11/24/2020 10:2 5 AM CDT Impressions 11/24/2020 11:00 AM CDT IMPRESSION: 1. Right and left shoulders: Mild acromioclavicular osteoarthritis bilaterally. 2. Right and left knees: Normal. 3. Right and left hands: Normal. 4. Right foot: Mild osteoarthritis at the first metatarsophalangeal joint. 5. Left foot: Chronic healed fracture of the fifth proximal phalanx. No significant arthritis. 6. Pelvis and bilateral hips: Normal hips. A 3 cm focal area of sclerosis in region of the mid to upper aspect of the left sacroiliac joint. Differential diagnosis includes joint related sclerosis (osteoarthritis or sacroiliitis) versus a sclerotic bone lesion. Recommend comparison to prior imaging of this area, if available. Otherwise MRI of the pelvis with and without contrast could be performed for characterization. Alternatively follow-up radiographs would be recommended in 3 months to ensure stability. Dictated by Daniel Garcia MD (certified residential medication aide). I, Dr. NEPTALI NIEVES MD have personally reviewed and interpreted this examination/study. This report was electronically signed by NEPTALI NIEVES MD ??on 11/24/2020 11:00 AM . Narrative 11/24/2020 11:00 AM CDT EXAMINATION: 1.XR SHOULDER RIGHT 3VW 2.XR SHOULDER LEFT 3VW 3.XR PELVIS W BILAT HIP 2VW 4.XR KNEE RIGHT 3VW 5.XR KNEE LEFT 3VW 6.XR FOOT LEFT 2VW 7.XR FOOT RIGHT 2VW 8.XR HAND LEFT 2VW 9.XR HAND RIGHT 2VW HISTORY: M25.50: Arthralgia, unspecified joint R76.8: Other specified abnormal immunological findings in serum COMPARISON: No prior study is available for comparison. FINDINGS: Right shoulder: The osseous structures are intact without acute fracture. Small cyst is demonstrated in the humeral head. The glenohumeral and acromioclavicular joints are in anatomic alignment. Mild osteoarthritis of the acromioclavicular joint. Bone density and texture are normal. ??No erosions demonstrated. 4 mm sclerotic lesion in the proximal humerus is consistent with a bone island. Left shoulder: The osseous structures are intact without acute fracture. The glenohumeral and acromioclavicular joints are in anatomic alignment. Mild osteoarthritis of the acromioclavicular joint. Bone density and texture are normal. ??No erosions demonstrated. Right hand: The osseous structures are intact and well aligned without acute fracture or dislocation. The joint spaces are preserved. Bone density and texture are normal. No erosions demonstrated.Diffuse soft tissue swelling is present. Left hand: The osseous structures are intact and well aligned without acute fracture or dislocation. The joint spaces are preserved. Bone density and texture are normal. No erosions demonstrated.Diffuse soft tissue swelling is present. Pelvis with bilateral hips: There is no fracture or dislocation of either hip. The joint spaces are normal. There are no erosions. The pelvic radiograph demonstrates no fracture. A 3 cm focal area of sclerosis is seen in the region of the mid to upper left sacroiliac joint. The pubic symphysis is normal. Right knee: The osseous structures are intact and well aligned without acute fracture or dislocation. The knee joint space is preserved. No joint effusion is seen. Bone density and texture are normal. Left knee: The osseous structures are intact and well aligned without acute fracture or dislocation. The knee joint space is preserved. No joint effusion is seen. No erosions demonstrated.Bone density and texture are normal. Right foot: The osseous structures are intact and well aligned without acute fracture or dislocation. Mild osteoarthritis of the first metatarsophalangeal joint. Otherwise the joint spaces are preserved. Bone density and texture are normal. No erosions demonstrated. No soft tissue swelling is present. Left foot: The osseous structures are intact and well aligned without acute fracture or dislocation. There is mild deformity of the fifth toe proximal phalanx consistent with a chronic healed fracture. Small osteophyte demonstrated at the dorsal aspect of the talus. The joint spaces are preserved. Bone density and texture are normal. No soft tissue swelling is present. Procedure Note Neptali Nieves MD - 11/24/2020 EXAMINATION: 1.XR SHOULDER RIGHT 3VW 2.XR SHOULDER LEFT 3VW 3.XR PELVIS W BILAT HIP 2VW 4.XR KNEE RIGHT 3VW 5.XR KNEE LEFT 3VW 6.XR FOOT LEFT 2VW 7.XR FOOT RIGHT 2VW 8.XR HAND LEFT 2VW 9.XR HAND RIGHT 2VW HISTORY: M25.50: Arthralgia, unspecified joint R76.8: Other specified abnormal immunological findings in serum COMPARISON: No prior study is available for comparison. FINDINGS: Right shoulder: The osseous structures are intact without acute fracture. Small cyst is demonstrated in the humeral head. The glenohumeral and acromioclavicular joints are in anatomic alignment. Mild osteoarthritis of the acromioclavicular joint. Bone density and texture are normal. Noerosions demonstrated. 4 mm sclerotic lesion in the proximal humerus isconsistent with a bone island. Left shoulder: The osseous structures are intact without acute fracture. Theglenohumeral and acromioclavicular joints are in anatomic alignment. Mild osteoarthritis of the acromioclavicular joint. Bone density and texture are normal. No erosions demonstrated. Right hand: The osseous structures are intact and well aligned without acutefracture or dislocation. The joint spaces are preserved. Bone density and texture are normal. No erosions demonstrated.Diffuse soft tissue swelling is present. Left hand: The osseous structures are intact and well aligned without acutefracture or dislocation. The joint spaces are preserved. Bone density and texture are normal. No erosions demonstrated.Diffuse soft tissue swelling is present. Pelvis with bilateral hips: There is no fracture or dislocation of either hip. The joint spaces are normal. There are no erosions. The pelvic radiograph demonstrates no fracture. A 3 cm focal area of sclerosis is seen in the region of the mid to upper left sacroiliacjoint. The pubic symphysis is normal. Right knee: The osseous structures are intact and well aligned without acutefracture or dislocation. The knee joint space is preserved. No joint effusion is seen. Bone density and texture are normal. Left knee: The osseous structures are intact and well aligned without acutefracture or dislocation. The knee joint space is preserved. No joint effusion is seen. No erosions demonstrated.Bone density and texture are normal. Right foot: The osseous structures are intact and well aligned without acutefracture or dislocation. Mild osteoarthritis of the first metatarsophalangeal joint. Otherwise the joint spaces are preserved. Bone density andtexture are normal. No erosions demonstrated. No soft tissue swelling ispresent. Left foot: The osseous structures are intact and well aligned without acutefracture or dislocation. There is mild deformity of the fifth toe proximalphalanx consistent with a chronic healed fracture. Small osteophyte demonstrated at the dorsal aspect of the talus. The joint spaces are preserved. Bone density and texture are normal. No soft tissue swelling is present. IMPRESSION: 1. Right and left shoulders: Mild acromioclavicular osteoarthritis bilaterally. 2. Right and left knees: Normal. 3. Right and left hands: Normal. 4. Right foot: Mild osteoarthritis at the first metatarsophalangealjoint. 5. Left foot: Chronic healed fracture of the fifth proximal phalanx. No significant arthritis. 6. Pelvis and bilateral hips: Normal hips. A 3 cm focal area ofsclerosis in region of the mid to upper aspect of the left sacroiliac joint. Differential diagnosis includes joint related sclerosis (osteoarthritisor sacroiliitis) versus a sclerotic bone lesion. Recommend comparison to prior imaging of this area, if available. Otherwise MRI of the pelviswith and without contrast could be performed for characterization. Alternatively follow-up radiographs would be recommended in 3 months to ensure stability. Dictated by Daniel Garcia MD (certified residential medication aide). I, Dr. NEPTALI NIEVES MD have personally reviewed and interpreted this examination/study. This report was electronically signed by NEPTALI NIEVES MD on11/24/2020 11:00 AM . Christel Ramos MD DIAGNOSTIC IMAG ING ORDERABLES * XR KNEE LEFT 3VW (11/24/2020 10:24 AM CDT) Anatomical Region Laterality Modality Lower Extremity Radiographic Shauna ging 11/24/2020 10:2 5 AM CDT Impressions 11/24/2020 11:00 AM CDT IMPRESSION: 1. Right and left shoulders: Mild acromioclavicular osteoarthritis bilaterally. 2. Right and left knees: Normal. 3. Right and left hands: Normal. 4. Right foot: Mild osteoarthritis at the first metatarsophalangeal joint. 5. Left foot: Chronic healed fracture of the fifth proximal phalanx. No significant arthritis. 6. Pelvis and bilateral hips: Normal hips. A 3 cm focal area of sclerosis in region of the mid to upper aspect of the left sacroiliac joint. Differential diagnosis includes joint related sclerosis (osteoarthritis or sacroiliitis) versus a sclerotic bone lesion. Recommend comparison to prior imaging of this area, if available. Otherwise MRI of the pelvis with and without contrast could be performed for characterization. Alternatively follow-up radiographs would be recommended in 3 months to ensure stability. Dictated by Daniel Garcia MD (certified residential medication aide). I, Dr. NEPTALI NIEVES MD have personally reviewed and interpreted this examination/study. This report was electronically signed by NEPTALI NIEVES MD ??on 11/24/2020 11:00 AM . Narrative 11/24/2020 11:00 AM CDT EXAMINATION: 1.XR SHOULDER RIGHT 3VW 2.XR SHOULDER LEFT 3VW 3.XR PELVIS W BILAT HIP 2VW 4.XR KNEE RIGHT 3VW 5.XR KNEE LEFT 3VW 6.XR FOOT LEFT 2VW 7.XR FOOT RIGHT 2VW 8.XR HAND LEFT 2VW 9.XR HAND RIGHT 2VW HISTORY: M25.50: Arthralgia, unspecified joint R76.8: Other specified abnormal immunological findings in serum COMPARISON: No prior study is available for comparison. FINDINGS: Right shoulder: The osseous structures are intact without acute fracture. Small cyst is demonstrated in the humeral head. The glenohumeral and acromioclavicular joints are in anatomic alignment. Mild osteoarthritis of the acromioclavicular joint. Bone density and texture are normal. ??No erosions demonstrated. 4 mm sclerotic lesion in the proximal humerus is consistent with a bone island. Left shoulder: The osseous structures are intact without acute fracture. The glenohumeral and acromioclavicular joints are in anatomic alignment. Mild osteoarthritis of the acromioclavicular joint. Bone density and texture are normal. ??No erosions demonstrated. Right hand: The osseous structures are intact and well aligned without acute fracture or dislocation. The joint spaces are preserved. Bone density and texture are normal. No erosions demonstrated.Diffuse soft tissue swelling is present. Left hand: The osseous structures are intact and well aligned without acute fracture or dislocation. The joint spaces are preserved. Bone density and texture are normal. No erosions demonstrated.Diffuse soft tissue swelling is present. Pelvis with bilateral hips: There is no fracture or dislocation of either hip. The joint spaces are normal. There are no erosions. The pelvic radiograph demonstrates no fracture. A 3 cm focal area of sclerosis is seen in the region of the mid to upper left sacroiliac joint. The pubic symphysis is normal. Right knee: The osseous structures are intact and well aligned without acute fracture or dislocation. The knee joint space is preserved. No joint effusion is seen. Bone density and texture are normal. Left knee: The osseous structures are intact and well aligned without acute fracture or dislocation. The knee joint space is preserved. No joint effusion is seen. No erosions demonstrated.Bone density and texture are normal. Right foot: The osseous structures are intact and well aligned without acute fracture or dislocation. Mild osteoarthritis of the first metatarsophalangeal joint. Otherwise the joint spaces are preserved. Bone density and texture are normal. No erosions demonstrated. No soft tissue swelling is present. Left foot: The osseous structures are intact and well aligned without acute fracture or dislocation. There is mild deformity of the fifth toe proximal phalanx consistent with a chronic healed fracture. Small osteophyte demonstrated at the dorsal aspect of the talus. The joint spaces are preserved. Bone density and texture are normal. No soft tissue swelling is present. Procedure Note Neptali Nieves MD - 11/24/2020 EXAMINATION: 1.XR SHOULDER RIGHT 3VW 2.XR SHOULDER LEFT 3VW 3.XR PELVIS W BILAT HIP 2VW 4.XR KNEE RIGHT 3VW 5.XR KNEE LEFT 3VW 6.XR FOOT LEFT 2VW 7.XR FOOT RIGHT 2VW 8.XR HAND LEFT 2VW 9.XR HAND RIGHT 2VW HISTORY: M25.50: Arthralgia, unspecified joint R76.8: Other specified abnormal immunological findings in serum COMPARISON: No prior study is available for comparison. FINDINGS: Right shoulder: The osseous structures are intact without acute fracture. Small cyst is demonstrated in the humeral head. The glenohumeral and acromioclavicular joints are in anatomic alignment. Mild osteoarthritis of the acromioclavicular joint. Bone density and texture are normal. Noerosions demonstrated. 4 mm sclerotic lesion in the proximal humerus isconsistent with a bone island. Left shoulder: The osseous structures are intact without acute fracture. Theglenohumeral and acromioclavicular joints are in anatomic alignment. Mild osteoarthritis of the acromioclavicular joint. Bone density and texture are normal. No erosions demonstrated. Right hand: The osseous structures are intact and well aligned without acutefracture or dislocation. The joint spaces are preserved. Bone density and texture are normal. No erosions demonstrated.Diffuse soft tissue swelling is present. Left hand: The osseous structures are intact and well aligned without acutefracture or dislocation. The joint spaces are preserved. Bone density and texture are normal. No erosions demonstrated.Diffuse soft tissue swelling is present. Pelvis with bilateral hips: There is no fracture or dislocation of either hip. The joint spaces are normal. There are no erosions. The pelvic radiograph demonstrates no fracture. A 3 cm focal area of sclerosis is seen in the region of the mid to upper left sacroiliacjoint. The pubic symphysis is normal. Right knee: The osseous structures are intact and well aligned without acutefracture or dislocation. The knee joint space is preserved. No joint effusion is seen. Bone density and texture are normal. Left knee: The osseous structures are intact and well aligned without acutefracture or dislocation. The knee joint space is preserved. No joint effusion is seen. No erosions demonstrated.Bone density and texture are normal. Right foot: The osseous structures are intact and well aligned without acutefracture or dislocation. Mild osteoarthritis of the first metatarsophalangeal joint. Otherwise the joint spaces are preserved. Bone density andtexture are normal. No erosions demonstrated. No soft tissue swelling ispresent. Left foot: The osseous structures are intact and well aligned without acutefracture or dislocation. There is mild deformity of the fifth toe proximalphalanx consistent with a chronic healed fracture. Small osteophyte demonstrated at the dorsal aspect of the talus. The joint spaces are preserved. Bone density and texture are normal. No soft tissue swelling is present. IMPRESSION: 1. Right and left shoulders: Mild acromioclavicular osteoarthritis bilaterally. 2. Right and left knees: Normal. 3. Right and left hands: Normal. 4. Right foot: Mild osteoarthritis at the first metatarsophalangealjoint. 5. Left foot: Chronic healed fracture of the fifth proximal phalanx. No significant arthritis. 6. Pelvis and bilateral hips: Normal hips. A 3 cm focal area ofsclerosis in region of the mid to upper aspect of the left sacroiliac joint. Differential diagnosis includes joint related sclerosis (osteoarthritisor sacroiliitis) versus a sclerotic bone lesion. Recommend comparison to prior imaging of this area, if available. Otherwise MRI of the pelviswith and without contrast could be performed for characterization. Alternatively follow-up radiographs would be recommended in 3 months to ensure stability. Dictated by Daniel Garcia MD (certified residential medication aide). Dr. NEPTALI Spivey MD have personally reviewed and interpreted this examination/study. This report was electronically signed by NEPTALI NIEVES MD on11/24/2020 11:00 AM . Christel Ramos MD DIAGNOSTIC IMAG ING ORDERABLES * XR PELVIS W BILAT HIP 2VW (11/24/2020 10:24 AM CDT) Anatomical Region Laterality Modality Pelvis, Lower Extremity Radiogra [facility] 11/24/2020 10:2 5 AM CDT Impressions 11/24/2020 11:00 AM CDT IMPRESSION: 1. Right and left shoulders: Mild acromioclavicular osteoarthritis bilaterally. 2. Right and left knees: Normal. 3. Right and left hands: Normal. 4. Right foot: Mild osteoarthritis at the first metatarsophalangeal joint. 5. Left foot: Chronic healed fracture of the fifth proximal phalanx. No significant arthritis. 6. Pelvis and bilateral hips: Normal hips. A 3 cm focal area of sclerosis in region of the mid to upper aspect of the left sacroiliac joint. Differential diagnosis includes joint related sclerosis (osteoarthritis or sacroiliitis) versus a sclerotic bone lesion. Recommend comparison to prior imaging of this area, if available. Otherwise MRI of the pelvis with and without contrast could be performed for characterization. Alternatively follow-up radiographs would be recommended in 3 months to ensure stability. Dictated by Daniel Garcia MD (certified residential medication aide). I, Dr. NEPTALI NIEVES MD have personally reviewed and interpreted this examination/study. This report was electronically signed by NEPTALI NIEVES MD ??on 11/24/2020 11:00 AM . Narrative 11/24/2020 11:00 AM CDT EXAMINATION: 1.XR SHOULDER RIGHT 3VW 2.XR SHOULDER LEFT 3VW 3.XR PELVIS W BILAT HIP 2VW 4.XR KNEE RIGHT 3VW 5.XR KNEE LEFT 3VW 6.XR FOOT LEFT 2VW 7.XR FOOT RIGHT 2VW 8.XR HAND LEFT 2VW 9.XR HAND RIGHT 2VW HISTORY: M25.50: Arthralgia, unspecified joint R76.8: Other specified abnormal immunological findings in serum COMPARISON: No prior study is available for comparison. FINDINGS: Right shoulder: The osseous structures are intact without acute fracture. Small cyst is demonstrated in the humeral head. The glenohumeral and acromioclavicular joints are in anatomic alignment. Mild osteoarthritis of the acromioclavicular joint. Bone density and texture are normal. ??No erosions demonstrated. 4 mm sclerotic lesion in the proximal humerus is consistent with a bone island. Left shoulder: The osseous structures are intact without acute fracture. The glenohumeral and acromioclavicular joints are in anatomic alignment. Mild osteoarthritis of the acromioclavicular joint. Bone density and texture are normal. ??No erosions demonstrated. Right hand: The osseous structures are intact and well aligned without acute fracture or dislocation. The joint spaces are preserved. Bone density and texture are normal. No erosions demonstrated.Diffuse soft tissue swelling is present. Left hand: The osseous structures are intact and well aligned without acute fracture or dislocation. The joint spaces are preserved. Bone density and texture are normal. No erosions demonstrated.Diffuse soft tissue swelling is present. Pelvis with bilateral hips: There is no fracture or dislocation of either hip. The joint spaces are normal. There are no erosions. The pelvic radiograph demonstrates no fracture. A 3 cm focal area of sclerosis is seen in the region of the mid to upper left sacroiliac joint. The pubic symphysis is normal. Right knee: The osseous structures are intact and well aligned without acute fracture or dislocation. The knee joint space is preserved. No joint effusion is seen. Bone density and texture are normal. Left knee: The osseous structures are intact and well aligned without acute fracture or dislocation. The knee joint space is preserved. No joint effusion is seen. No erosions demonstrated.Bone density and texture are normal. Right foot: The osseous structures are intact and well aligned without acute fracture or dislocation. Mild osteoarthritis of the first metatarsophalangeal joint. Otherwise the joint spaces are preserved. Bone density and texture are normal. No erosions demonstrated. No soft tissue swelling is present. Left foot: The osseous structures are intact and well aligned without acute fracture or dislocation. There is mild deformity of the fifth toe proximal phalanx consistent with a chronic healed fracture. Small osteophyte demonstrated at the dorsal aspect of the talus. The joint spaces are preserved. Bone density and texture are normal. No soft tissue swelling is present. Procedure Note Neptali Nieves MD - 11/24/2020 EXAMINATION: 1.XR SHOULDER RIGHT 3VW 2.XR SHOULDER LEFT 3VW 3.XR PELVIS W BILAT HIP 2VW 4.XR KNEE RIGHT 3VW 5.XR KNEE LEFT 3VW 6.XR FOOT LEFT 2VW 7.XR FOOT RIGHT 2VW 8.XR HAND LEFT 2VW 9.XR HAND RIGHT 2VW HISTORY: M25.50: Arthralgia, unspecified joint R76.8: Other specified abnormal immunological findings in serum COMPARISON: No prior study is available for comparison. FINDINGS: Right shoulder: The osseous structures are intact without acute fracture. Small cyst is demonstrated in the humeral head. The glenohumeral and acromioclavicular joints are in anatomic alignment. Mild osteoarthritis of the acromioclavicular joint. Bone density and texture are normal. Noerosions demonstrated. 4 mm sclerotic lesion in the proximal humerus isconsistent with a bone island. Left shoulder: The osseous structures are intact without acute fracture. Theglenohumeral and acromioclavicular joints are in anatomic alignment. Mild osteoarthritis of the acromioclavicular joint. Bone density and texture are normal. No erosions demonstrated. Right hand: The osseous structures are intact and well aligned without acutefracture or dislocation. The joint spaces are preserved. Bone density and texture are normal. No erosions demonstrated.Diffuse soft tissue swelling is present. Left hand: The osseous structures are intact and well aligned without acutefracture or dislocation. The joint spaces are preserved. Bone density and texture are normal. No erosions demonstrated.Diffuse soft tissue swelling is present. Pelvis with bilateral hips: There is no fracture or dislocation of either hip. The joint spaces are normal. There are no erosions. The pelvic radiograph demonstrates no fracture. A 3 cm focal area of sclerosis is seen in the region of the mid to upper left sacroiliacjoint. The pubic symphysis is normal. Right knee: The osseous structures are intact and well aligned without acutefracture or dislocation. The knee joint space is preserved. No joint effusion is seen. Bone density and texture are normal. Left knee: The osseous structures are intact and well aligned without acutefracture or dislocation. The knee joint space is preserved. No joint effusion is seen. No erosions demonstrated.Bone density and texture are normal. Right foot: The osseous structures are intact and well aligned without acutefracture or dislocation. Mild osteoarthritis of the first metatarsophalangeal joint. Otherwise the joint spaces are preserved. Bone density andtexture are normal. No erosions demonstrated. No soft tissue swelling ispresent. Left foot: The osseous structures are intact and well aligned without acutefracture or dislocation. There is mild deformity of the fifth toe proximalphalanx consistent with a chronic healed fracture. Small osteophyte demonstrated at the dorsal aspect of the talus. The joint spaces are preserved. Bone density and texture are normal. No soft tissue swelling is present. IMPRESSION: 1. Right and left shoulders: Mild acromioclavicular osteoarthritis bilaterally. 2. Right and left knees: Normal. 3. Right and left hands: Normal. 4. Right foot: Mild osteoarthritis at the first metatarsophalangealjoint. 5. Left foot: Chronic healed fracture of the fifth proximal phalanx. No significant arthritis. 6. Pelvis and bilateral hips: Normal hips. A 3 cm focal area ofsclerosis in region of the mid to upper aspect of the left sacroiliac joint. Differential diagnosis includes joint related sclerosis (osteoarthritisor sacroiliitis) versus a sclerotic bone lesion. Recommend comparison to prior imaging of this area, if available. Otherwise MRI of the pelviswith and without contrast could be performed for characterization. Alternatively follow-up radiographs would be recommended in 3 months to ensure stability. Dictated by Daniel Garcia MD (certified residential medication aide). Dr. NEPTALI Spivey MD have personally reviewed and interpreted this examination/study. This report was electronically signed by NEPTALI NIEVES MD on11/24/2020 11:00 AM . Christel Ramos MD DIAGNOSTIC IMAG ING ORDERABLES * XR HAND RIGHT 2VW (11/24/2020 10:24 AM CDT) Anatomical Region Laterality Modality Wrist / Hand Radiographic Shauna ging 11/24/2020 10:2 5 AM CDT Impressions 11/24/2020 11:00 AM CDT IMPRESSION: 1. Right and left shoulders: Mild acromioclavicular osteoarthritis bilaterally. 2. Right and left knees: Normal. 3. Right and left hands: Normal. 4. Right foot: Mild osteoarthritis at the first metatarsophalangeal joint. 5. Left foot: Chronic healed fracture of the fifth proximal phalanx. No significant arthritis. 6. Pelvis and bilateral hips: Normal hips. A 3 cm focal area of sclerosis in region of the mid to upper aspect of the left sacroiliac joint. Differential diagnosis includes joint related sclerosis (osteoarthritis or sacroiliitis) versus a sclerotic bone lesion. Recommend comparison to prior imaging of this area, if available. Otherwise MRI of the pelvis with and without contrast could be performed for characterization. Alternatively follow-up radiographs would be recommended in 3 months to ensure stability. Dictated by Daniel Garcia MD (certified residential medication aide). Dr. NEPTALI Spivey MD have personally reviewed and interpreted this examination/study. This report was electronically signed by NEPTALI NIEVES MD ??on 11/24/2020 11:00 AM . Narrative 11/24/2020 11:00 AM CDT EXAMINATION: 1.XR SHOULDER RIGHT 3VW 2.XR SHOULDER LEFT 3VW 3.XR PELVIS W BILAT HIP 2VW 4.XR KNEE RIGHT 3VW 5.XR KNEE LEFT 3VW 6.XR FOOT LEFT 2VW 7.XR FOOT RIGHT 2VW 8.XR HAND LEFT 2VW 9.XR HAND RIGHT 2VW HISTORY: M25.50: Arthralgia, unspecified joint R76.8: Other specified abnormal immunological findings in serum COMPARISON: No prior study is available for comparison. FINDINGS: Right shoulder: The osseous structures are intact without acute fracture. Small cyst is demonstrated in the humeral head. The glenohumeral and acromioclavicular joints are in anatomic alignment. Mild osteoarthritis of the acromioclavicular joint. Bone density and texture are normal. ??No erosions demonstrated. 4 mm sclerotic lesion in the proximal humerus is consistent with a bone island. Left shoulder: The osseous structures are intact without acute fracture. The glenohumeral and acromioclavicular joints are in anatomic alignment. Mild osteoarthritis of the acromioclavicular joint. Bone density and texture are normal. ??No erosions demonstrated. Right hand: The osseous structures are intact and well aligned without acute fracture or dislocation. The joint spaces are preserved. Bone density and texture are normal. No erosions demonstrated.Diffuse soft tissue swelling is present. Left hand: The osseous structures are intact and well aligned without acute fracture or dislocation. The joint spaces are preserved. Bone density and texture are normal. No erosions demonstrated.Diffuse soft tissue swelling is present. Pelvis with bilateral hips: There is no fracture or dislocation of either hip. The joint spaces are normal. There are no erosions. The pelvic radiograph demonstrates no fracture. A 3 cm focal area of sclerosis is seen in the region of the mid to upper left sacroiliac joint. The pubic symphysis is normal. Right knee: The osseous structures are intact and well aligned without acute fracture or dislocation. The knee joint space is preserved. No joint effusion is seen. Bone density and texture are normal. Left knee: The osseous structures are intact and well aligned without acute fracture or dislocation. The knee joint space is preserved. No joint effusion is seen. No erosions demonstrated.Bone density and texture are normal. Right foot: The osseous structures are intact and well aligned without acute fracture or dislocation. Mild osteoarthritis of the first metatarsophalangeal joint. Otherwise the joint spaces are preserved. Bone density and texture are normal. No erosions demonstrated. No soft tissue swelling is present. Left foot: The osseous structures are intact and well aligned without acute fracture or dislocation. There is mild deformity of the fifth toe proximal phalanx consistent with a chronic healed fracture. Small osteophyte demonstrated at the dorsal aspect of the talus. The joint spaces are preserved. Bone density and texture are normal. No soft tissue swelling is present. Procedure Note Neptali Nieves MD - 11/24/2020 EXAMINATION: 1.XR SHOULDER RIGHT 3VW 2.XR SHOULDER LEFT 3VW 3.XR PELVIS W BILAT HIP 2VW 4.XR KNEE RIGHT 3VW 5.XR KNEE LEFT 3VW 6.XR FOOT LEFT 2VW 7.XR FOOT RIGHT 2VW 8.XR HAND LEFT 2VW 9.XR HAND RIGHT 2VW HISTORY: M25.50: Arthralgia, unspecified joint R76.8: Other specified abnormal immunological findings in serum COMPARISON: No prior study is available for comparison. FINDINGS: Right shoulder: The osseous structures are intact without acute fracture. Small cyst is demonstrated in the humeral head. The glenohumeral and acromioclavicular joints are in anatomic alignment. Mild osteoarthritis of the acromioclavicular joint. Bone density and texture are normal. Noerosions demonstrated. 4 mm sclerotic lesion in the proximal humerus isconsistent with a bone island. Left shoulder: The osseous structures are intact without acute fracture. Theglenohumeral and acromioclavicular joints are in anatomic alignment. Mild osteoarthritis of the acromioclavicular joint. Bone density and texture are normal. No erosions demonstrated. Right hand: The osseous structures are intact and well aligned without acutefracture or dislocation. The joint spaces are preserved. Bone density and texture are normal. No erosions demonstrated.Diffuse soft tissue swelling is present. Left hand: The osseous structures are intact and well aligned without acutefracture or dislocation. The joint spaces are preserved. Bone density and texture are normal. No erosions demonstrated.Diffuse soft tissue swelling is present. Pelvis with bilateral hips: There is no fracture or dislocation of either hip. The joint spaces are normal. There are no erosions. The pelvic radiograph demonstrates no fracture. A 3 cm focal area of sclerosis is seen in the region of the mid to upper left sacroiliacjoint. The pubic symphysis is normal. Right knee: The osseous structures are intact and well aligned without acutefracture or dislocation. The knee joint space is preserved. No joint effusion is seen. Bone density and texture are normal. Left knee: The osseous structures are intact and well aligned without acutefracture or dislocation. The knee joint space is preserved. No joint effusion is seen. No erosions demonstrated.Bone density and texture are normal. Right foot: The osseous structures are intact and well aligned without acutefracture or dislocation. Mild osteoarthritis of the first metatarsophalangeal joint. Otherwise the joint spaces are preserved. Bone density andtexture are normal. No erosions demonstrated. No soft tissue swelling ispresent. Left foot: The osseous structures are intact and well aligned without acutefracture or dislocation. There is mild deformity of the fifth toe proximalphalanx consistent with a chronic healed fracture. Small osteophyte demonstrated at the dorsal aspect of the talus. The joint spaces are preserved. Bone density and texture are normal. No soft tissue swelling is present. IMPRESSION: 1. Right and left shoulders: Mild acromioclavicular osteoarthritis bilaterally. 2. Right and left knees: Normal. 3. Right and left hands: Normal. 4. Right foot: Mild osteoarthritis at the first metatarsophalangealjoint. 5. Left foot: Chronic healed fracture of the fifth proximal phalanx. No significant arthritis. 6. Pelvis and bilateral hips: Normal hips. A 3 cm focal area ofsclerosis in region of the mid to upper aspect of the left sacroiliac joint. Differential diagnosis includes joint related sclerosis (osteoarthritisor sacroiliitis) versus a sclerotic bone lesion. Recommend comparison to prior imaging of this area, if available. Otherwise MRI of the pelviswith and without contrast could be performed for characterization. Alternatively follow-up radiographs would be recommended in 3 months to ensure stability. Dictated by Daniel Garcia MD (certified residential medication aide). I, Dr. NEPTALI NIEVES MD have personally reviewed and interpreted this examination/study. This report was electronically signed by NEPTALI NIEVES MD on11/24/2020 11:00 AM . Christel Ramos MD DIAGNOSTIC IMAG ING ORDERABLES * XR HAND LEFT 2VW (11/24/2020 10:24 AM CDT) Anatomical Region Laterality Modality Wrist / Hand Radiographic Shauna ging 11/24/2020 10:2 5 AM CDT Impressions 11/24/2020 11:00 AM CDT IMPRESSION: 1. Right and left shoulders: Mild acromioclavicular osteoarthritis bilaterally. 2. Right and left knees: Normal. 3. Right and left hands: Normal. 4. Right foot: Mild osteoarthritis at the first metatarsophalangeal joint. 5. Left foot: Chronic healed fracture of the fifth proximal phalanx. No significant arthritis. 6. Pelvis and bilateral hips: Normal hips. A 3 cm focal area of sclerosis in region of the mid to upper aspect of the left sacroiliac joint. Differential diagnosis includes joint related sclerosis (osteoarthritis or sacroiliitis) versus a sclerotic bone lesion. Recommend comparison to prior imaging of this area, if available. Otherwise MRI of the pelvis with and without contrast could be performed for characterization. Alternatively follow-up radiographs would be recommended in 3 months to ensure stability. Dictated by Daniel Garcia MD (certified residential medication aide). I, Dr. NEPTALI NIEVES MD have personally reviewed and interpreted this examination/study. This report was electronically signed by NEPTALI NIEVES MD ??on 11/24/2020 11:00 AM . Narrative 11/24/2020 11:00 AM CDT EXAMINATION: 1.XR SHOULDER RIGHT 3VW 2.XR SHOULDER LEFT 3VW 3.XR PELVIS W BILAT HIP 2VW 4.XR KNEE RIGHT 3VW 5.XR KNEE LEFT 3VW 6.XR FOOT LEFT 2VW 7.XR FOOT RIGHT 2VW 8.XR HAND LEFT 2VW 9.XR HAND RIGHT 2VW HISTORY: M25.50: Arthralgia, unspecified joint R76.8: Other specified abnormal immunological findings in serum COMPARISON: No prior study is available for comparison. FINDINGS: Right shoulder: The osseous structures are intact without acute fracture. Small cyst is demonstrated in the humeral head. The glenohumeral and acromioclavicular joints are in anatomic alignment. Mild osteoarthritis of the acromioclavicular joint. Bone density and texture are normal. ??No erosions demonstrated. 4 mm sclerotic lesion in the proximal humerus is consistent with a bone island. Left shoulder: The osseous structures are intact without acute fracture. The glenohumeral and acromioclavicular joints are in anatomic alignment. Mild osteoarthritis of the acromioclavicular joint. Bone density and texture are normal. ??No erosions demonstrated. Right hand: The osseous structures are intact and well aligned without acute fracture or dislocation. The joint spaces are preserved. Bone density and texture are normal. No erosions demonstrated.Diffuse soft tissue swelling is present. Left hand: The osseous structures are intact and well aligned without acute fracture or dislocation. The joint spaces are preserved. Bone density and texture are normal. No erosions demonstrated.Diffuse soft tissue swelling is present. Pelvis with bilateral hips: There is no fracture or dislocation of either hip. The joint spaces are normal. There are no erosions. The pelvic radiograph demonstrates no fracture. A 3 cm focal area of sclerosis is seen in the region of the mid to upper left sacroiliac joint. The pubic symphysis is normal. Right knee: The osseous structures are intact and well aligned without acute fracture or dislocation. The knee joint space is preserved. No joint effusion is seen. Bone density and texture are normal. Left knee: The osseous structures are intact and well aligned without acute fracture or dislocation. The knee joint space is preserved. No joint effusion is seen. No erosions demonstrated.Bone density and texture are normal. Right foot: The osseous structures are intact and well aligned without acute fracture or dislocation. Mild osteoarthritis of the first metatarsophalangeal joint. Otherwise the joint spaces are preserved. Bone density and texture are normal. No erosions demonstrated. No soft tissue swelling is present. Left foot: The osseous structures are intact and well aligned without acute fracture or dislocation. There is mild deformity of the fifth toe proximal phalanx consistent with a chronic healed fracture. Small osteophyte demonstrated at the dorsal aspect of the talus. The joint spaces are preserved. Bone density and texture are normal. No soft tissue swelling is present. Procedure Note Neptali Nieves MD - 11/24/2020 EXAMINATION: 1.XR SHOULDER RIGHT 3VW 2.XR SHOULDER LEFT 3VW 3.XR PELVIS W BILAT HIP 2VW 4.XR KNEE RIGHT 3VW 5.XR KNEE LEFT 3VW 6.XR FOOT LEFT 2VW 7.XR FOOT RIGHT 2VW 8.XR HAND LEFT 2VW 9.XR HAND RIGHT 2VW HISTORY: M25.50: Arthralgia, unspecified joint R76.8: Other specified abnormal immunological findings in serum COMPARISON: No prior study is available for comparison. FINDINGS: Right shoulder: The osseous structures are intact without acute fracture. Small cyst is demonstrated in the humeral head. The glenohumeral and acromioclavicular joints are in anatomic alignment. Mild osteoarthritis of the acromioclavicular joint. Bone density and texture are normal. Noerosions demonstrated. 4 mm sclerotic lesion in the proximal humerus isconsistent with a bone island. Left shoulder: The osseous structures are intact without acute fracture. Theglenohumeral and acromioclavicular joints are in anatomic alignment. Mild osteoarthritis of the acromioclavicular joint. Bone density and texture are normal. No erosions demonstrated. Right hand: The osseous structures are intact and well aligned without acutefracture or dislocation. The joint spaces are preserved. Bone density and texture are normal. No erosions demonstrated.Diffuse soft tissue swelling is present. Left hand: The osseous structures are intact and well aligned without acutefracture or dislocation. The joint spaces are preserved. Bone density and texture are normal. No erosions demonstrated.Diffuse soft tissue swelling is present. Pelvis with bilateral hips: There is no fracture or dislocation of either hip. The joint spaces are normal. There are no erosions. The pelvic radiograph demonstrates no fracture. A 3 cm focal area of sclerosis is seen in the region of the mid to upper left sacroiliacjoint. The pubic symphysis is normal. Right knee: The osseous structures are intact and well aligned without acutefracture or dislocation. The knee joint space is preserved. No joint effusion is seen. Bone density and texture are normal. Left knee: The osseous structures are intact and well aligned without acutefracture or dislocation. The knee joint space is preserved. No joint effusion is seen. No erosions demonstrated.Bone density and texture are normal. Right foot: The osseous structures are intact and well aligned without acutefracture or dislocation. Mild osteoarthritis of the first metatarsophalangeal joint. Otherwise the joint spaces are preserved. Bone density andtexture are normal. No erosions demonstrated. No soft tissue swelling ispresent. Left foot: The osseous structures are intact and well aligned without acutefracture or dislocation. There is mild deformity of the fifth toe proximalphalanx consistent with a chronic healed fracture. Small osteophyte demonstrated at the dorsal aspect of the talus. The joint spaces are preserved. Bone density and texture are normal. No soft tissue swelling is present. IMPRESSION: 1. Right and left shoulders: Mild acromioclavicular osteoarthritis bilaterally. 2. Right and left knees: Normal. 3. Right and left hands: Normal. 4. Right foot: Mild osteoarthritis at the first metatarsophalangealjoint. 5. Left foot: Chronic healed fracture of the fifth proximal phalanx. No significant arthritis. 6. Pelvis and bilateral hips: Normal hips. A 3 cm focal area ofsclerosis in region of the mid to upper aspect of the left sacroiliac joint. Differential diagnosis includes joint related sclerosis (osteoarthritisor sacroiliitis) versus a sclerotic bone lesion. Recommend comparison to prior imaging of this area, if available. Otherwise MRI of the pelviswith and without contrast could be performed for characterization. Alternatively follow-up radiographs would be recommended in 3 months to ensure stability. Dictated by Daniel Garcia MD (certified residential medication aide). I, Dr. NEPTALI NIEVES MD have personally reviewed and interpreted this examination/study. This report was electronically signed by NEPTALI NIEVES MD on11/24/2020 11:00 AM . Christel Ramos MD DIAGNOSTIC IMAG ING ORDERABLES * XR SHOULDER RIGHT 2VW OR MORE (11/24/2020 10:24 AM CDT) Anatomical Region Laterality Modality Upper Extremity Radiographic Shauna ging 11/24/2020 10:2 5 AM CDT Impressions 11/24/2020 11:00 AM CDT IMPRESSION: 1. Right and left shoulders: Mild acromioclavicular osteoarthritis bilaterally. 2. Right and left knees: Normal. 3. Right and left hands: Normal. 4. Right foot: Mild osteoarthritis at the first metatarsophalangeal joint. 5. Left foot: Chronic healed fracture of the fifth proximal phalanx. No significant arthritis. 6. Pelvis and bilateral hips: Normal hips. A 3 cm focal area of sclerosis in region of the mid to upper aspect of the left sacroiliac joint. Differential diagnosis includes joint related sclerosis (osteoarthritis or sacroiliitis) versus a sclerotic bone lesion. Recommend comparison to prior imaging of this area, if available. Otherwise MRI of the pelvis with and without contrast could be performed for characterization. Alternatively follow-up radiographs would be recommended in 3 months to ensure stability. Dictated by Daniel Garcia MD (certified residential medication aide). I, Dr. NEPTALI NIEVES MD have personally reviewed and interpreted this examination/study. This report was electronically signed by NEPTALI NIEVES MD ??on 11/24/2020 11:00 AM . Narrative 11/24/2020 11:00 AM CDT EXAMINATION: 1.XR SHOULDER RIGHT 3VW 2.XR SHOULDER LEFT 3VW 3.XR PELVIS W BILAT HIP 2VW 4.XR KNEE RIGHT 3VW 5.XR KNEE LEFT 3VW 6.XR FOOT LEFT 2VW 7.XR FOOT RIGHT 2VW 8.XR HAND LEFT 2VW 9.XR HAND RIGHT 2VW HISTORY: M25.50: Arthralgia, unspecified joint R76.8: Other specified abnormal immunological findings in serum COMPARISON: No prior study is available for comparison. FINDINGS: Right shoulder: The osseous structures are intact without acute fracture. Small cyst is demonstrated in the humeral head. The glenohumeral and acromioclavicular joints are in anatomic alignment. Mild osteoarthritis of the acromioclavicular joint. Bone density and texture are normal. ??No erosions demonstrated. 4 mm sclerotic lesion in the proximal humerus is consistent with a bone island. Left shoulder: The osseous structures are intact without acute fracture. The glenohumeral and acromioclavicular joints are in anatomic alignment. Mild osteoarthritis of the acromioclavicular joint. Bone density and texture are normal. ??No erosions demonstrated. Right hand: The osseous structures are intact and well aligned without acute fracture or dislocation. The joint spaces are preserved. Bone density and texture are normal. No erosions demonstrated.Diffuse soft tissue swelling is present. Left hand: The osseous structures are intact and well aligned without acute fracture or dislocation. The joint spaces are preserved. Bone density and texture are normal. No erosions demonstrated.Diffuse soft tissue swelling is present. Pelvis with bilateral hips: There is no fracture or dislocation of either hip. The joint spaces are normal. There are no erosions. The pelvic radiograph demonstrates no fracture. A 3 cm focal area of sclerosis is seen in the region of the mid to upper left sacroiliac joint. The pubic symphysis is normal. Right knee: The osseous structures are intact and well aligned without acute fracture or dislocation. The knee joint space is preserved. No joint effusion is seen. Bone density and texture are normal. Left knee: The osseous structures are intact and well aligned without acute fracture or dislocation. The knee joint space is preserved. No joint effusion is seen. No erosions demonstrated.Bone density and texture are normal. Right foot: The osseous structures are intact and well aligned without acute fracture or dislocation. Mild osteoarthritis of the first metatarsophalangeal joint. Otherwise the joint spaces are preserved. Bone density and texture are normal. No erosions demonstrated. No soft tissue swelling is present. Left foot: The osseous structures are intact and well aligned without acute fracture or dislocation. There is mild deformity of the fifth toe proximal phalanx consistent with a chronic healed fracture. Small osteophyte demonstrated at the dorsal aspect of the talus. The joint spaces are preserved. Bone density and texture are normal. No soft tissue swelling is present. Procedure Note Neptali Nieves MD - 11/24/2020 EXAMINATION: 1.XR SHOULDER RIGHT 3VW 2.XR SHOULDER LEFT 3VW 3.XR PELVIS W BILAT HIP 2VW 4.XR KNEE RIGHT 3VW 5.XR KNEE LEFT 3VW 6.XR FOOT LEFT 2VW 7.XR FOOT RIGHT 2VW 8.XR HAND LEFT 2VW 9.XR HAND RIGHT 2VW HISTORY: M25.50: Arthralgia, unspecified joint R76.8: Other specified abnormal immunological findings in serum COMPARISON: No prior study is available for comparison. FINDINGS: Right shoulder: The osseous structures are intact without acute fracture. Small cyst is demonstrated in the humeral head. The glenohumeral and acromioclavicular joints are in anatomic alignment. Mild osteoarthritis of the acromioclavicular joint. Bone density and texture are normal. Noerosions demonstrated. 4 mm sclerotic lesion in the proximal humerus isconsistent with a bone island. Left shoulder: The osseous structures are intact without acute fracture. Theglenohumeral and acromioclavicular joints are in anatomic alignment. Mild osteoarthritis of the acromioclavicular joint. Bone density and texture are normal. No erosions demonstrated. Right hand: The osseous structures are intact and well aligned without acutefracture or dislocation. The joint spaces are preserved. Bone density and texture are normal. No erosions demonstrated.Diffuse soft tissue swelling is present. Left hand: The osseous structures are intact and well aligned without acutefracture or dislocation. The joint spaces are preserved. Bone density and texture are normal. No erosions demonstrated.Diffuse soft tissue swelling is present. Pelvis with bilateral hips: There is no fracture or dislocation of either hip. The joint spaces are normal. There are no erosions. The pelvic radiograph demonstrates no fracture. A 3 cm focal area of sclerosis is seen in the region of the mid to upper left sacroiliacjoint. The pubic symphysis is normal. Right knee: The osseous structures are intact and well aligned without acutefracture or dislocation. The knee joint space is preserved. No joint effusion is seen. Bone density and texture are normal. Left knee: The osseous structures are intact and well aligned without acutefracture or dislocation. The knee joint space is preserved. No joint effusion is seen. No erosions demonstrated.Bone density and texture are normal. Right foot: The osseous structures are intact and well aligned without acutefracture or dislocation. Mild osteoarthritis of the first metatarsophalangeal joint. Otherwise the joint spaces are preserved. Bone density andtexture are normal. No erosions demonstrated. No soft tissue swelling ispresent. Left foot: The osseous structures are intact and well aligned without acutefracture or dislocation. There is mild deformity of the fifth toe proximalphalanx consistent with a chronic healed fracture. Small osteophyte demonstrated at the dorsal aspect of the talus. The joint spaces are preserved. Bone density and texture are normal. No soft tissue swelling is present. IMPRESSION: 1. Right and left shoulders: Mild acromioclavicular osteoarthritis bilaterally. 2. Right and left knees: Normal. 3. Right and left hands: Normal. 4. Right foot: Mild osteoarthritis at the first metatarsophalangealjoint. 5. Left foot: Chronic healed fracture of the fifth proximal phalanx. No significant arthritis. 6. Pelvis and bilateral hips: Normal hips. A 3 cm focal area ofsclerosis in region of the mid to upper aspect of the left sacroiliac joint. Differential diagnosis includes joint related sclerosis (osteoarthritisor sacroiliitis) versus a sclerotic bone lesion. Recommend comparison to prior imaging of this area, if available. Otherwise MRI of the pelviswith and without contrast could be performed for characterization. Alternatively follow-up radiographs would be recommended in 3 months to ensure stability. Dictated by Daniel Garcia MD (certified residential medication aide). Dr. NEPTALI Spivey MD have personally reviewed and interpreted this examination/study. This report was electronically signed by NEPTALI NIEVES MD on11/24/2020 11:00 AM . Christel Ramos MD DIAGNOSTIC IMAG ING ORDERABLES * XR SHOULDER LEFT 2VW OR MORE (11/24/2020 10:24 AM CDT) Anatomical Region Laterality Modality Upper Extremity Radiographic Shauna ging 11/24/2020 10:2 5 AM CDT Impressions 11/24/2020 11:00 AM CDT IMPRESSION: 1. Right and left shoulders: Mild acromioclavicular osteoarthritis bilaterally. 2. Right and left knees: Normal. 3. Right and left hands: Normal. 4. Right foot: Mild osteoarthritis at the first metatarsophalangeal joint. 5. Left foot: Chronic healed fracture of the fifth proximal phalanx. No significant arthritis. 6. Pelvis and bilateral hips: Normal hips. A 3 cm focal area of sclerosis in region of the mid to upper aspect of the left sacroiliac joint. Differential diagnosis includes joint related sclerosis (osteoarthritis or sacroiliitis) versus a sclerotic bone lesion. Recommend comparison to prior imaging of this area, if available. Otherwise MRI of the pelvis with and without contrast could be performed for characterization. Alternatively follow-up radiographs would be recommended in 3 months to ensure stability. Dictated by Daniel Garcia MD (certified residential medication aide). Dr. NEPTALI Spivey MD have personally reviewed and interpreted this examination/study. This report was electronically signed by NEPTALI NIEVES MD ??on 11/24/2020 11:00 AM . Narrative 11/24/2020 11:00 AM CDT EXAMINATION: 1.XR SHOULDER RIGHT 3VW 2.XR SHOULDER LEFT 3VW 3.XR PELVIS W BILAT HIP 2VW 4.XR KNEE RIGHT 3VW 5.XR KNEE LEFT 3VW 6.XR FOOT LEFT 2VW 7.XR FOOT RIGHT 2VW 8.XR HAND LEFT 2VW 9.XR HAND RIGHT 2VW HISTORY: M25.50: Arthralgia, unspecified joint R76.8: Other specified abnormal immunological findings in serum COMPARISON: No prior study is available for comparison. FINDINGS: Right shoulder: The osseous structures are intact without acute fracture. Small cyst is demonstrated in the humeral head. The glenohumeral and acromioclavicular joints are in anatomic alignment. Mild osteoarthritis of the acromioclavicular joint. Bone density and texture are normal. ??No erosions demonstrated. 4 mm sclerotic lesion in the proximal humerus is consistent with a bone island. Left shoulder: The osseous structures are intact without acute fracture. The glenohumeral and acromioclavicular joints are in anatomic alignment. Mild osteoarthritis of the acromioclavicular joint. Bone density and texture are normal. ??No erosions demonstrated. Right hand: The osseous structures are intact and well aligned without acute fracture or dislocation. The joint spaces are preserved. Bone density and texture are normal. No erosions demonstrated.Diffuse soft tissue swelling is present. Left hand: The osseous structures are intact and well aligned without acute fracture or dislocation. The joint spaces are preserved. Bone density and texture are normal. No erosions demonstrated.Diffuse soft tissue swelling is present. Pelvis with bilateral hips: There is no fracture or dislocation of either hip. The joint spaces are normal. There are no erosions. The pelvic radiograph demonstrates no fracture. A 3 cm focal area of sclerosis is seen in the region of the mid to upper left sacroiliac joint. The pubic symphysis is normal. Right knee: The osseous structures are intact and well aligned without acute fracture or dislocation. The knee joint space is preserved. No joint effusion is seen. Bone density and texture are normal. Left knee: The osseous structures are intact and well aligned without acute fracture or dislocation. The knee joint space is preserved. No joint effusion is seen. No erosions demonstrated.Bone density and texture are normal. Right foot: The osseous structures are intact and well aligned without acute fracture or dislocation. Mild osteoarthritis of the first metatarsophalangeal joint. Otherwise the joint spaces are preserved. Bone density and texture are normal. No erosions demonstrated. No soft tissue swelling is present. Left foot: The osseous structures are intact and well aligned without acute fracture or dislocation. There is mild deformity of the fifth toe proximal phalanx consistent with a chronic healed fracture. Small osteophyte demonstrated at the dorsal aspect of the talus. The joint spaces are preserved. Bone density and texture are normal. No soft tissue swelling is present. Procedure Note Neptali Nieves MD - 11/24/2020 EXAMINATION: 1.XR SHOULDER RIGHT 3VW 2.XR SHOULDER LEFT 3VW 3.XR PELVIS W BILAT HIP 2VW 4.XR KNEE RIGHT 3VW 5.XR KNEE LEFT 3VW 6.XR FOOT LEFT 2VW 7.XR FOOT RIGHT 2VW 8.XR HAND LEFT 2VW 9.XR HAND RIGHT 2VW HISTORY: M25.50: Arthralgia, unspecified joint R76.8: Other specified abnormal immunological findings in serum COMPARISON: No prior study is available for comparison. FINDINGS: Right shoulder: The osseous structures are intact without acute fracture. Small cyst is demonstrated in the humeral head. The glenohumeral and acromioclavicular joints are in anatomic alignment. Mild osteoarthritis of the acromioclavicular joint. Bone density and texture are normal. Noerosions demonstrated. 4 mm sclerotic lesion in the proximal humerus isconsistent with a bone island. Left shoulder: The osseous structures are intact without acute fracture. Theglenohumeral and acromioclavicular joints are in anatomic alignment. Mild osteoarthritis of the acromioclavicular joint. Bone density and texture are normal. No erosions demonstrated. Right hand: The osseous structures are intact and well aligned without acutefracture or dislocation. The joint spaces are preserved. Bone density and texture are normal. No erosions demonstrated.Diffuse soft tissue swelling is present. Left hand: The osseous structures are intact and well aligned without acutefracture or dislocation. The joint spaces are preserved. Bone density and texture are normal. No erosions demonstrated.Diffuse soft tissue swelling is present. Pelvis with bilateral hips: There is no fracture or dislocation of either hip. The joint spaces are normal. There are no erosions. The pelvic radiograph demonstrates no fracture. A 3 cm focal area of sclerosis is seen in the region of the mid to upper left sacroiliacjoint. The pubic symphysis is normal. Right knee: The osseous structures are intact and well aligned without acutefracture or dislocation. The knee joint space is preserved. No joint effusion is seen. Bone density and texture are normal. Left knee: The osseous structures are intact and well aligned without acutefracture or dislocation. The knee joint space is preserved. No joint effusion is seen. No erosions demonstrated.Bone density and texture are normal. Right foot: The osseous structures are intact and well aligned without acutefracture or dislocation. Mild osteoarthritis of the first metatarsophalangeal joint. Otherwise the joint spaces are preserved. Bone density andtexture are normal. No erosions demonstrated. No soft tissue swelling ispresent. Left foot: The osseous structures are intact and well aligned without acutefracture or dislocation. There is mild deformity of the fifth toe proximalphalanx consistent with a chronic healed fracture. Small osteophyte demonstrated at the dorsal aspect of the talus. The joint spaces are preserved. Bone density and texture are normal. No soft tissue swelling is present. IMPRESSION: 1. Right and left shoulders: Mild acromioclavicular osteoarthritis bilaterally. 2. Right and left knees: Normal. 3. Right and left hands: Normal. 4. Right foot: Mild osteoarthritis at the first metatarsophalangealjoint. 5. Left foot: Chronic healed fracture of the fifth proximal phalanx. No significant arthritis. 6. Pelvis and bilateral hips: Normal hips. A 3 cm focal area ofsclerosis in region of the mid to upper aspect of the left sacroiliac joint. Differential diagnosis includes joint related sclerosis (osteoarthritisor sacroiliitis) versus a sclerotic bone lesion. Recommend comparison to prior imaging of this area, if available. Otherwise MRI of the pelviswith and without contrast could be performed for characterization. Alternatively follow-up radiographs would be recommended in 3 months to ensure stability. Dictated by Daniel Garcia MD (certified residential medication aide). I, Dr. NEPTALI NIEVES MD have personally reviewed and interpreted this examination/study. This report was electronically signed by NEPTALI NIEVES MD on11/24/2020 11:00 AM . Christel Ramos MD DIAGNOSTIC IMAG ING ORDERABLES * URINALYSIS W/MICROSCOPIC NO CULTURE (11/24/2020 9:49 AM [facility]) Color UA Yellow Straw, Yellow 11/24/2020 10:50 AM [facility] Clarity UA Clear Clear 11/24/2020 10:50 AM [facility] Specific [place] UA 1.011 1.005 - 1.030 11/24/2020 10:50 AM [facility] pH UA 5.0 5.0 - 8.0 pH 11/24/2020 10:50 AM [facility] Protein UA Negative Negative 11/24/2020 10:50 AM [facility] Glucose UA Negative Negative 11/24/2020 10:50 AM [facility] Ketone UA Negative Negative 11/24/2020 10:50 AM [facility] Bilirubin UA Negative Negative 11/24/2020 10:50 AM [facility] Blood UA Negative Negative 11/24/2020 10:50 AM [facility] Nitrite UA Negative Negative 11/24/2020 10:50 AM [facility] Leukocyte Esterase Negative Negative 11/24/2020 10:50 AM [facility] Urobilinogen UA Negative Negative mg/dL 11/24/2020 10:50 AM [facility] RBC UA 0-2 None Seen, 0-2, 3-5 /HPF 11/24/2020 10:50 AM [facility] WBC UA 0-5 None Seen, 0-5 /HPF 11/24/2020 10:50 AM [facility] Squamous Epithelial Cells UA 0-2 None Seen, 0-2, 3-5 /HPF 11/24/2020 10:50 AM [facility] Mucus UA 1+ /LPF 11/24/2020 10:50 AM [facility] Urine URINE SPECIMEN OBTAINED BY CLEAN CATCH PROCEDURE / Unknown Collection / Unknown 11/24/2020 9:49 AM CDT 11/24/2020 10:32 AM CDT Narrative [facility] - 11/24/2020 10:50 AM CDT Christel Ramos MD LAB - URINALYSI S ORDERABLES [facility] [address] [place] [address], [facility] [phone] * SS-A (SJOGREN'S) 52+60 ANTIBODIES (11/24/2020 9:49 AM CDT) SS-A 52 Antibody 7 0 - 40 AU/mL 11/26/2020 7:55 AM CDT [facility] ([facility]) Comment: INTERPRETIVE INFORMATION: SSA-52 (Ro52) (LUNA) Antibody, IgG ??29 AU/mL or Less ............. Negative ??30 - 40 AU/mL ................ Equivocal ??41 AU/mL or Greater .......... Positive SSA-52 (Ro52) and/or SSA-60 (Ro60) antibodies are associated with a diagnosis of Sjogren syndrome, systemic lupus erythematosus (SLE), and systemic sclerosis. SSA-52 antibody overlaps significantly with the major SSc-related antibodies. SSA-52 (Ro52) antibody occurs frequently in patients with inflammatory myopathies, often in the presence of interstitial lung disease. SS-A 60 Antibody 2 0 - 40 AU/mL 11/26/2020 7:55 AM CDT [facility] ([facility]) Comment: REFERENCE INTERVAL: SSA-60 (Ro60) (LUNA) Antibody, IgG ??29 AU/mL or Less ............. Negative ??30 - 40 AU/mL ................ Equivocal ??41 AU/mL or Greater .......... Positive Performed By: [facility] [address] [place] [address] Bronc Breaker: Marilou Zhang MD Blood BLOOD SPECIMEN / Unknown Lab Venipuncture / Unknown 11/24/2020 9:49 AM CDT 11/24/2020 10:26 AM CDT Christel Ramos MD LAB - CHEMISTRY ORDERABLES [facility]) [address] [place] [address], [facility] * QUANTIFERON-TB GOLD PLUS 4-TUBE (11/24/2020 9:49 AM CDT) Pathologist [facility] QuantiFERON NIL 0.04 IU/mL 5:01 AM CDT [facility] ([facility]) Comment: Performed By: [facility] [address] [place] [address] Bronc Breaker: Marilou Zhang MD QuantiFERON TB Gold Plus Negative Negative 11/27/2020 5:01 AM CDT [facility] ([facility]) Comment: Interpretive Data: Quantiferon TB Gold Plus Interferon gamma release is measured for specimens from each of the four collection tubes. A qualitative result (Negative, Positive, or Indeterminate) is based on interpretation of the four values, NIL, MITOGEN minus NIL (MITOGEN-NIL), TB1 minus NIL (TB1-NIL), and TB2 minus NIL (TB2-NIL). The NIL value represents nonspecific reactivity produced by the patient specimen. The MITOGEN-NIL value serves as the positive control for the patient specimen, demonstrating successful lymphocyte activity. The TB1-NIL tube specifically detects CD4+ lymphocyte reactivity, specifically stimulated by the TB1 antigens. The TB2-NIL tube detects both CD4+ and CD8+ lymphocyte reactivity, stimulated by TB2 antigens. An overall Negative result does not completely rule out TB infection. A false-positive result in the absence of other clinical evidence of TB infection is not uncommon. Refer to: Updated Guidelines for Using Interferon Gamma Release Assays to Detect Mycobacterium tuberculosis Infection --- [place], 2010 (http://www.cdc.gov/mmwr/preview/mmwrhtml/vh7746z0.htm), for more information concerning test performance in low-prevalence populations and use in occupational screening. QuantiFERON Plus TB1 Minus NIL 0.01 0.00 - 0.34 IU/mL 11/27/2020 5:01 AM CDT [facility] ([facility]) QuantiFERON Plus TB2 Minus NIL 0.00 0.00 - 0.34 IU/mL 11/27/2020 5:01 AM CDT [facility] ([facility]) QuantiFERON Mitogen Minus NIL 9.35 IU/mL 11/27/2020 5:01 AM CDT [facility]) Blood BLOOD SPECIMEN / Unknown Lab Venipuncture / Unknown 11/24/2020 9:49 AM CDT 11/24/2020 10:26 AM CDT Christel Ramos MD LAB - CHEMISTRY ORDERABLES [facility]) [address] [place] [address], [facility] * CYCLIC CITRUL PEPTIDE ANTIBODY IGG/IGA (CCP) (11/24/2020 9:49 AM CDT) CCP Antibodies IgG/IgA 10 0 - 19 units 11/27/2020 1:06 AM CDT [facility] ([facility]) Comment: ?Negative ? <20 ?Weak positive ?20 - 39 ?Moderate positive ??40 - 59 ?Strong positive ?>59 Blood BLOOD SPECIMEN / Unknown Lab Venipuncture / Unknown 11/24/2020 9:49 AM CDT 11/24/2020 10:26 AM CDT Narrative [facility] ([facility]) - 11/27/2020 1:06 AM CDT Performed at: ??01 - [facility] [address] ??[id number] Shot Lighter: Real Fernández MD, Phone: ??[phone] Christel Ramos MD LAB - SEROLOGY ORDERABLES [facility] ([facility]) [address] [place] [address] * (ABNORMAL) URIC ACID BLOOD (11/24/2020 9:49 AM CDT) Uric Acid 7.9(H) 3.5 - 7.2 mg/dL 11/24/2020 11:08 AM CDT [facility] Blood BLOOD SPECIMEN / Unknown Lab Venipuncture / Unknown 11/24/2020 9:49 AM CDT 11/24/2020 10:38 AM CDT Christel Ramos MD LAB - CHEMISTRY ORDERABLES Performing Organization Address City/[facility]/ZIP Co de Phone Number [address] [address], [facility] [phone] * RHEUMATOID FACTOR BLOOD QUANTITATIVE (11/24/2020 9:49 AM CDT) Rheumatoid Factor 29 <30 IU/mL 11/24/2020 11:49 AM CDT [facility] Rheumatoid Factor Screen Negative Negative 11/24/2020 11:49 AM CDT [facility] Blood BLOOD SPECIMEN / Unknown Lab Venipuncture / Unknown 11/24/2020 9:49 AM CDT 11/24/2020 10:26 AM CDT Christel Ramos MD LAB - CHEMISTRY ORDERABLES [facility] [address] [place] [address], [place] [phone] * C-REACTIVE PROTEIN (11/24/2020 9:49 AM CDT) C-Reactive Protein <0.5 <=0.5 mg/dL 11/24/2020 11:49 AM CDT [facility] Blood BLOOD SPECIMEN / Unknown Lab Venipuncture / Unknown 11/24/2020 9:49 AM CDT 11/24/2020 10:26 AM CDT Christel Ramos MD LAB - CHEMISTRY ORDERABLES [facility] [place] [address], [facility] [phone] * SS-B (SJOGREN'S) ANTIBODY (11/24/2020 9:49 AM CDT) SS-B Antibody 8 0 - 40 AU/mL 11/26/2020 7:55 AM CDT [facility] ([facility]) Comment: INTERPRETIVE INFORMATION: SSB (La) (LUNA) Ab, IgG ??29 AU/mL or Less ............. Negative ??30 - 40 AU/mL ................ Equivocal ??41 AU/mL or Greater .......... Positive SSB (La) antibody is seen in 50-60% of Sjogren syndrome cases and is specific if it is the only LUNA antibody present. 15-25% of patients with systemic lupus erythematosus (SLE) and 5-10% of patients with progressive systemic sclerosis (PSS) also have this antibody. Performed By: [facility] [address] [place] [address] Bronc Breaker: Marilou Zhang MD Blood BLOOD SPECIMEN / Unknown Lab Venipuncture / Unknown 11/24/2020 9:49 AM CDT 11/24/2020 10:26 AM CDT Christel Ramos MD LAB - CHEMISTRY ORDERABLES [employer] [facility]) [address] * ERYTHROCYTE SEDIMENTATION RATE (11/24/2020 9:49 AM CDT) Erythrocyte Sedimentation Rate Westergren 13 0 - 20 MM/HR 11/24/2020 10:53 AM CDT [facility] Blood BLOOD SPECIMEN / Unknown Lab Venipuncture / Unknown 11/24/2020 9:49 AM CDT 11/24/2020 10:32 AM CDT Christel Ramos MD LAB - HEMATOLOG Y ORDERABLES [facility] [address] [place] [address], [facility] [phone] * (ABNORMAL) CBC WITH DIFFERENTIAL (11/24/2020 9:49 AM CDT) WBC 9.3 3.5 - 10.5 10? 3 /uL 11/24/2020 10:38 AM [facility] RBC 4.75 4.30 - 5.70 10? 6 /uL 11/24/2020 10:38 AM [facility] Hemoglobin 15.9 12.0 - 17.6 g/dL 11/24/2020 10:38 AM [facility] Hematocrit 47.1 35.2 - 51.7 % 11/24/2020 10:38 AM [facility] MCV 99.2(H) 80.7 - 98.3 fL 11/24/2020 10:38 AM [facility] MCH 33.5 26.7 - 34.0 pg 11/24/2020 10:38 AM [facility] MCHC 33.8 30.8 - 35.9 g/dL 11/24/2020 10:38 AM [facility] Platelet Count 234 150 - 400 10? 3 /uL 11/24/2020 10:38 AM [facility] RDW-SD 50.3(H) 36.0 - 50.0 fL 11/24/2020 10:38 AM [facility] RDW-CV 13.6 11.2 - 14.8 % 11/24/2020 10:38 AM [facility] MPV 9.4 9.4 - 12.9 fL 11/24/2020 10:38 AM [facility] nRBC Absolute 0.00 0 10? 3 /uL 11/24/2020 10:38 AM [facility] nRBC Auto 0.0 0 /100 WBC 11/24/2020 10:38 AM [facility] Neutrophils % 56.2 35.0 - 70.0 % 11/24/2020 10:38 AM [facility] Lymphocytes % 30.5 20.0 - 43.0 % 11/24/2020 10:38 AM [facility] Monocytes % 10.1 5.0 - 13.0 % 11/24/2020 10:38 AM [facility] Eosinophils % 1.9 0.0 - 6.0 % 11/24/2020 10:38 AM [facility] Basophil % 0.8 0.0 - 2.0 % 11/24/2020 10:38 AM [facility] Neutrophils Absolute 5.2 1.6 - 7.0 10? 3 /uL 11/24/2020 10:38 AM [facility] Lymphocyte Absolute 2.8 1.1 - 3.9 10? 3 /uL 11/24/2020 10:38 AM [facility] Monocytes Absolute 0.93 0.26 - 1.07 10? 3 /uL 11/24/2020 10:38 AM [facility] Eosinophils Absolute 0.18 0.00 - 0.47 10? 3 /uL 11/24/2020 10:38 AM [facility] Basophils Absolute 0.07 0.00 - 0.08 10? 3 /uL 11/24/2020 10:38 AM [facility] Immature Granulocytes % 0.5 0.0 - 1.0 % 11/24/2020 10:38 AM [facility] Immature Granulocytes Absolute 0.05 11/24/2020 10:38 AM [facility] Blood BLOOD SPECIMEN / Unknown Lab Venipuncture / Unknown 11/24/2020 9:49 AM CDT 11/24/2020 10:32 AM CDT Christel Ramos MD LAB - HEMATOLOG Y ORDERABLES [facility] [address] [place] [address], [facility] [phone] * (ABNORMAL) COMPREHENSIVE METABOLIC PANEL (11/24/2020 9:49 AM CDT) BUN 5(L) 7 - 26 mg/dL 11/24/2020 11:08 AM [facility] Creatinine 0.71 0.71 - 1.16 mg/dL 11/24/2020 11:08 AM [facility] Sodium 140 136 - 145 mmol/L 11/24/2020 11:08 AM [facility] Potassium 3.7 3.5 - 4.5 mmol/L 11/24/2020 11:08 AM [facility] Chloride 106 98 - 107 mmol/L 11/24/2020 11:08 AM [facility] CO2 21(L) 22 - 29 mmol/L 11/24/2020 11:08 AM [facility] Glucose 116(H) 70 - 115 mg/dL 11/24/2020 11:08 AM [facility] Calcium 9.3 8.4 - 10.2 mg/dL 11/24/2020 11:08 AM [facility] Protein Total 7.3 6.0 - 8.3 g/dL 11/24/2020 11:08 AM [facility] Albumin 3.6 3.4 - 5.0 g/dL 11/24/2020 11:08 AM [facility] Bilirubin Total 0.5 0.2 - 1.2 mg/dL 11/24/2020 11:08 AM [facility] Alkaline Phosphatase 118 40 - 150 U/L 11/24/2020 11:08 AM [facility] ALT 44 5 - 55 U/L 11/24/2020 11:08 AM [facility] AST 52(H) 5 - 34 U/L 11/24/2020 11:08 AM [facility] Anion Gap 17 8 - 18 11/24/2020 11:08 AM [facility] BUN/Creatinine Ratio 7 7 - 23 11/24/2020 11:08 AM [facility] Osmolality Calculated 288 270 - 300 mOsm/kg 11/24/2020 11:08 AM [facility] Albumin/Globulin Ratio 1.0(L) 1.1 - 2.3 11/24/2020 11:08 AM CDT [facility] eGFR by CKD-EPI >90 >=90 mL/min/1.7 3 m2 11/24/2020 11:08 AM CDT [facility] Blood BLOOD SPECIMEN / Unknown Lab Venipuncture / Unknown 11/24/2020 9:49 AM CDT 11/24/2020 10:38 AM CDT Christel Ramos MD LAB - CHEMISTRY ORDERABLES Performing Organization Address [facility] Co de Phone Number [facility] [address] [place] [address], [place] [phone] * HEPATITIS B SURFACE ANTIBODY (11/24/2020 9:49 AM CDT) Hepatitis B Virus Surface Antibody Non-react frances Non-react frances 11/24/2020 12:08 PM CDT [facility] Comment: < 8 mIU/mL Hepatitis B surface Antibody (HBsAb). Nonreactive for HBsAb - individual is considered not immune to Hepatitis B Virus infection. Hepatitis B Surface Antibody Quantitative 0.1 <8.0 mIU/mL 11/24/2020 12:08 PM T [facility] Comment: Hepatitis B Surface Antibody Numeric Result Interpretation: ? Nonreactive: ?<8.0 mIU/mL ? Indeterminate: ??8.0 - 12.0 mIU/mL ? Reactive: ?>12.0 mIU/mL ? Blood BLOOD SPECIMEN / Unknown Lab Venipuncture / Unknown 11/24/2020 9:49 AM CDT 11/24/2020 10:26 AM CDT Christel Ramos MD LAB - CHEMISTRY ORDERABLES Performing Organization Address [facility] Co de Phone Number [facility] [address] [place] [address], [employer] [phone] * HEPATITIS B CORE ANTIBODY (11/24/2020 9:49 AM CDT) HBc Antibody Total Non-reacti ve Non-reacti ve 11/24/2020 12:08 PM CDT [facility] Blood BLOOD SPECIMEN / Unknown Lab Venipuncture / Unknown 11/24/2020 9:49 AM CDT 11/24/2020 10:26 AM CDT Christel Ramos MD LAB - CHEMISTRY ORDERABLES [address] [address], [facility] [phone] * HEPATITIS C ANTIBODY (11/24/2020 9:49 AM CDT) Pathologist [facility] Hepatitis C Antibody Non-react frances Non-reac tive 11/24/2020 12:08 PM CDT [facility] Comment:Hepatitis C Antibody screen indicates no serologic evidence of past or current infection with Hepatitis C Virus. Patients with unexplained liver disease who are immunocompromised or suspected of having acute Hepatitis C infection may benefit from Nucleic Acid Test (CHACHA) for Hepatitis C Viral RNA to confirm Hepatitis C status. Blood BLOOD SPECIMEN / Unknown Lab Venipuncture / Unknown 11/24/2020 9:49 AM CDT 11/24/2020 10:26 AM CDT Christel Ramos MD LAB - CHEMISTRY ORDERABLES [address] [address], [facility] [phone] Care Teams Outbound Sales Specialist Relationship Specialty Start Date End Date Osman Squires DO [address] [place] [address] PCP - General 02/10/20
--- OUTSIDE RECORDS SUMMARY | 2024-04-10 16:20 | XMS_ITS ---
Care Plan - [facility] Created on: April 10, 2024 CATALINA GRIMALDO : 1965 Sex: Male Author Organization [facility] Address [address] [place] [phone] Phone Care Team Providers Care Tile Ditcher Name Role Phone Unavailable Unavailable Unavailable
--- OUTSIDE RECORDS SUMMARY | 2024-04-10 16:20 | XMS_ITS | Referral Summary ---
Author Organization [facility] [employer] Address [address] [place] [address] Care Team Providers Care Freight Flow Sales Leader Name Role Phone Tavia Osman Primary Care Provider [phone] Source Comments [facility] [employer],non-owned Affiliates and Associated Physician Practices is amultiple site organization consisting of ambulatory clinics and hospital sitesin [place], [place], [place] and [place]. This disclosure is being madepursuant to the Care Everywhere program and may not contain all information available regarding this patient. Last updated 17.[employer] Allergies No known active allergies Medications * Be aware that medications may not be up to date on this document. Alwaysverify current medications with the patient. Medication Sig Dispensed Refills Start Date End Date Status Ergocalciferol (VITAMIN D2 PO) Take 1,250 mcg by mouth once daily 04/15/2020 Active amLODIPine (NORVASC) 5 MG tablet Take 5 mg by mouth once daily 09/09/2020 Active cetirizine (ZYRTEC) 10 MG tablet 11/02/2020 Active gabapentin (NEURONTIN) 300 MG capsule 11/02/2020 Active hydroCHLOROthiazide (HYDRODIURIL) 12.5 MG 11/02/2020 Act frances ibuprofen (MOTRIN) 800 MG tablet 11/19/2020 Active potassium chloride ER (KLOR-CON) 10 MEQ tablet 11/02/2020 Active Cyanocobalamin (B-12 PO) Active cyclobenzaprine (FLEXERIL) 10 MG tablet Take 1 (one) tablet by mouth at bedtime 90 tablet 2 11/23/2020 Active allopurinol (ZYLOPRIM) 100 MG tablet Take 1 (one) tablet by mouth once daily 90 tablet 4 12/03/2020 Active Active Problems Problem Noted Date Diagnosed Date Arthralgia 11/24/2020 Other specified abnormal immunological findings in serum 11/24/2020 Immunizations Name Administration Dates Next Due [place] primary monovalent 12+ yr 0.5mL ,07/21/2020 Social History Tobacco Use Types Packs/Day Years [...] Mass Index 39.13 11/23/2020 12:42 PM CDT Plan of Treatment Not on file Procedures Procedure Name Priority Date/Time Associated Diagnosis Comments COMPREHENSIVE METABOLIC PANEL Routine 11/24/2020 9:49 AM CDT Arthralgia, unspecified joint Other specified abnormal immunological findings in serum HEPATITIS C ANTIBODY Routine 11/24/2020 9:49 AM CDT Arthralgia, unspecified joint Other specified abnormal immunological findings in serum from Last 3 Months or Most Recently Relevant to Health Maintenance Results * (ABNORMAL) COMPREHENSIVE METABOLIC PANEL (11/24/2020 9:49 AM CDT) BUN 5(L) 7 - 26 mg/dL 11/24/2020 11:08 AM T [facility] Creatinine 0.71 0.71 - 1.16 mg/dL 11/24/2020 11:08 AM T [facility] Sodium 140 136 - 145 mmol/L 11/24/2020 11:08 AM [facility] Potassium 3.7 3.5 - 4.5 mmol/L 11/24/2020 11:08 AM [facility] Chloride 106 98 - 107 mmol/L 11/24/2020 11:08 AM [facility] CO2 21(L) 22 - 29 mmol/L 11/24/2020 11:08 AM [facility] Glucose 116(H) 70 - 115 mg/dL 11/24/2020 11:08 AM [facility] Calcium 9.3 8.4 - 10.2 mg/dL 11/24/2020 11:08 AM [facility] Protein Total 7.3 6.0 - 8.3 g/dL 11/24/2020 11:08 AM [facility] Albumin 3.6 3.4 - 5.0 g/dL 11/24/2020 11:08 AM [facility] Bilirubin Total 0.5 0.2 - 1.2 mg/dL 11/24/2020 11:08 AM [facility] Alkaline Phosphatase 118 40 - 150 U/L 11/24/2020 11:08 AM [facility] ALT 44 5 - 55 U/L 11/24/2020 11:08 AM [facility] AST 52(H) 5 - 34 U/L 11/24/2020 11:08 AM [facility] Anion Gap 17 8 - 18 11/24/2020 11:08 AM [facility] BUN/Creatinine Ratio 7 7 - 23 11/24/2020 11:08 AM [facility] Osmolality Calculated 288 270 - 300 mOsm/kg 11/24/2020 11:08 AM [facility] Albumin/Globulin Ratio 1.0(L) 1.1 - 2.3 11/24/2020 11:08 AM [facility] eGFR by CKD-EPI >90 >=90 mL/min/1.7 3 m2 11/24/2020 11:08 AM [facility] Blood BLOOD SPECIMEN / Unknown Lab Venipuncture / Unknown 11/24/2020 9:49 AM CDT 11/24/2020 10:38 AM CDT Christel Ramos MD LAB - CHEMISTRY ORDERABLES [facility] [address] [place] [address], [facility] [phone] * HEPATITIS C ANTIBODY (11/24/2020 9:49 AM CDT) Hepatitis C Antibody Non-react frances Non-reac tive 11/24/2020 12:08 PM CDT [facility] Comment:Hepatitis C Antibody screen indicates no [...] LAB - CHEMISTRY ORDERABLES Performing Organization Address City/[facility]/ZIP Co de Phone Number [address] [address], [facility] [phone] from Last 3 Months or Most Recently Relevant to Health Maintenance Care Teams Freight Flow Sales Leader Relationship Specialty Start Date End Date Osman Squires DO [address] [address] PCP - General 02/10/20
--- OUTSIDE RECORDS SUMMARY | 2024-04-10 16:20 | XMS_ITS | Clinical Summary ---
Author Organization [facility] Address [address] [place] [phone] Phone Care Team Providers Care Cash Register Repairer Name Role Phone Tammiemarcin Smith DO Primary Care Provider [phone] Social History Tobacco Use Types Packs/Day Years Used Date Smoking Tobacco: Never Assessed Sex and Gender Information Value Date Recorded Sex Assigned at Not on file Legal Sex Male 1:12 PM CDT Gender Identity Not on file Sexual Orientation Not on file Plan of Treatment Health Maintenance Due Date Last Done Comments Hepatitis C Virus (HCV) Screening 1965 TdaP Immunization 1965 Hepatitis B Immunization (1 of 3 - 19+ 3-dose series) 1984 Colonoscopy 2010 Colorectal Cancer Screening 2010 Cologuard 08/31/2015 Immunochemical Fecal Occult Blood 08/31/2015 Pneumococcal Immunization (5 0+ years) (1 of 1 - PCV) 08/31/2015 Zoster Immunization (1 of 2) 08/31/2015 PSA Discussion 2020 Influenza Immunization (#1) 2023 SARS-COV-2 Immunization (3 - 2023-25 season) 2023 08/18/2020, 07/21/2020 Respiratory Syncytial Virus (RSV) Immunization (Adult) (1 - 1-dose 75+ series) 2040 Meningococcal Immunization (ACWY) Aged Out No longer eligible b ased on patient's age to complete this topic Pneumococcal Immunization Combined Aged Out No longer eligible b ased on patient's age to complete this topic Rotavirus Immunization Aged Out No lo nger eligible based on patient's age to complete this topic Insurance MEDICAID [employer] Care Teams Cash Register Repairer Relationship Specialty Start Date End Date Osman Squires DO [address] [place] [address] PCP - General Family Medicine 08/07/18
--- OUTSIDE RECORDS SUMMARY | 2024-04-10 16:20 | XMS_ITS ---
Author Organization [facility] Address [address] [place] [address] Phone Care Team Providers Care Heating Element Builder Name Role Phone Unavailable Unavailable Unavailable Plan of Treatment No Plan of Treatment Recorded Assessments Includes: Assessments for all patient encounters No Assessments Recorded Medical Equipment - Implanted Devices Includes: Current and historical Devices No Medical Equipment Recorded Medications Administered Includes: Administered Medications in patient's chart No Administered Medications Recorded Results Includes: Results from 04/10/2023 through 04/10/2024 No Results Recorded For Specified Dates History of Present Illness History of Present Illness not supported for this document type No History of Present Illness Recorded Social History No Social History Recorded - Smoking Status Unknown Medical History Includes: Medical History in patient's chart No Medical History Recorded Family History Includes: Family History in patient's chart No Family History Recorded Review of Systems Review of Systems not supported for this document type No Review of Systems Recorded Mental Status No Mental Status Recorded Functional Status No Functional Status Recorded Physical Exam Physical Exam not supported for this document type No Physical Exam Recorded Clinical Notes Includes: Signed Clinical Notes starting from 04/01/2022 No Clinical Notes Recorded
--- OUTSIDE RECORDS SUMMARY | 2024-04-10 16:20 | XMS_ITS | Clinical Summary ---
Author Organization [facility] Address [address] [place] [address] Care Team Providers Care Mangle Tender Name Role Phone Tavia Osman Primary Care Provider [phone] Source Comments [employer] [facility],non-owned Affiliates and Associated Physician Practices is amultiple site organization consisting of ambulatory clinics and hospital sitesin [place], [place], [place] and [place]. This disclosure is being madepursuant to the Care Everywhere program and may not contain all information available regarding this patient. Last updated 17.[employer] [facility] Allergies No known active allergies Medications * [...] [place] primary monovalent 12+ yr 0.5mL ,07/21/2020 Family History Medical History Relation Name Comments Alcohol abuse Father COPD - Chronic Obstructive Pulmonary Disease Father Cancer - Prostate Father Arthritis - Rheumatoid Mother Diabetes - Type 2 Mother Drug Abuse Mother Relation Name Status Comments Father Alive Mother Social History Tobacco Use Types Packs/Day Years [...] 11/23/2020 12:42 PM CDT Plan of Treatment Health Maintenance Due Date Last Done Comments COLOGUARD (AGES 45-75) - COL ON CA SCREENING 1965 COLON MONITORING 1965 COLONOSCOPY - COLON CA SCREENING 1965 CT COLONOGRAPHY - COLON CA SCREENING 1965 Colorectal Cancer Screening 1965 FIT - COLON CA SCREENING 1965 FLEX SIG - COLON CA SCREENING 1965 LIPID TESTING 1965 HIV SCREENING 1980 DTAP/TDAP/TD VACCINES (1 - Tdap) 1984 HEPATITIS B VACCINE (1 of 3 - 19+ 3-dose series) 1984 PNEUMOCOCCAL VACCINE 50+ (1 of 2 - PCV) 1984 PNEUMOCOCCAL VACCINE (1 of 2 - PCV) 1984 LUNG CANCER SCREENING 08/31/2015 ZOSTER VACCINE (1 of 2) 08/31/2015 COVID-19 VACCINE (3 - 2023-2 5 season) 2023 08/18/2020, 07/21/2020 INFLUENZA VACCINE (#1) 2023 SCREENING FOR DIABETES 11/25/2023 11/24/2020 DEPRESSION SCREENING 03/13/2024 HEPATITIS C SCREENING Completed 11/24/2020 HIB VACCINE Aged Out No longer eligi ble based on patient's age to complete this topic HPV VACCINE Aged Out No longer eligi ble based on patient's age to complete this topic MENINGOCOCCAL (Group B) VACCINE Aged Out No longer eligible b ased on patient's age to complete this topic MENINGOCOCCAL VACCINE Aged Out No shanon jyothi eligible based on patient's age to complete this topic Procedures Procedure Name Priority Date/Time Associated Diagnosis [...] 7 - 26 mg/dL 11/24/2020 11:08 AM [facility] Creatinine 0.71 0.71 - 1.16 mg/dL 11/24/2020 11:08 AM [facility] Sodium 140 136 - 145 mmol/L 11/24/2020 11:08 AM [facility] Potassium 3.7 3.5 - 4.5 mmol/L 11/24/2020 11:08 AM [facility] Chloride 106 98 - 107 mmol/L 11/24/2020 11:08 AM [facility] CO2 21(L) 22 - 29 mmol/L 11/24/2020 11:08 AM [facility] Glucose 116(H) 70 - 115 mg/dL 11/24/2020 11:08 AM [facility] Calcium 9.3 8.4 - 10.2 mg/dL 11/24/2020 11:08 AM [facility] Protein Total 7.3 6.0 - 8.3 g/dL 11/24/2020 11:08 AM [facility] Albumin 3.6 3.4 - 5.0 g/dL 11/24/2020 11:08 AM [facility] Bilirubin Total 0.5 0.2 - 1.2 mg/dL 11/24/2020 11:08 AM [facility] Alkaline Phosphatase 118 40 - 150 U/L 11/24/2020 11:08 AM [facility] ALT 44 5 - 55 U/L 11/24/2020 11:08 AM [facility] AST 52(H) 5 - 34 U/L 11/24/2020 11:08 AM [facility] Anion Gap 17 8 - 18 11/24/2020 11:08 AM [facility] BUN/Creatinine Ratio 7 7 - 23 11/24/2020 11:08 AM [facility] Osmolality Calculated 288 270 - 300 mOsm/kg 11/24/2020 11:08 AM [facility] Albumin/Globulin Ratio 1.0(L) 1.1 - 2.3 11/24/2020 11:08 AM [facility] eGFR by CKD-EPI >90 >=90 mL/min/1.7 3 m2 11/24/2020 11:08 AM [facility] Blood BLOOD SPECIMEN / Unknown Lab Venipuncture / Unknown 11/24/2020 9:49 AM CDT 11/24/2020 10:38 AM T Christel Ramos MD LAB - CHEMISTRY ORDERABLES [facility] [address] [place] [address], [facility] [phone] * HEPATITIS C ANTIBODY (11/24/2020 9:49 AM CDT) Hepatitis C Antibody Non-react frances Non-reac tive 11/24/2020 12:08 PM CDT [facility] Comment:Hepatitis C Antibody screen indicates no [...] Christel Ramos MD LAB - CHEMISTRY ORDERABLES [facility] [address] [place] [address], [facility] [phone] from Last 3 Months or Most Recently Relevant to Health Maintenance Care Teams Mangle Tender Relationship Specialty Start Date End Date Osman Squires DO [address] [facility] [address] [place] [address] PCP - General 02/10/20
[2024-04-10 19:29] LABS: Basophils Absolute Auto 0.1 K/mm3 (0.0-0.1); Basophils Percent Auto 1.7 % (0.2-1.2); Eosinophils Absolute Auto 0.1 K/mm3 (0-0.3); Eosinophils Percent Auto 1.5 % (0-4.4); Hematocrit 41.5 % (42.0-52.0); Hemoglobin 14.2 g/dL (14.0-18.0); Immature Granulocyte Absolute 0.04 K/mm3 (0.00-0.031); Immature Granulocyte Percent A 0.6 % (0-0.5); Lymphocytes Absolute Auto 1.77 K/mm3 (0.9-3.2); Lymphocytes Percent Auto 26.6 % (18.3-44.2); Mean Corpuscular HGB Conc 34.2 g/dl (32-36); Mean Corpuscular Hemoglobin 35.4 pg (26-34); Mean Corpuscular Volume 103.5 fl (80-100); Mean Platelet Volume 10.2 fl (7.4-10.4); Monocytes Absolute Auto 0.8 K/mm3 (0.1-0.6); Monocytes Percent Auto 11.4 % (2.6-8.5); Neutrophils Absolute Auto 3.9 K/mm3 (1.3-6.7); Neutrophils Percent Auto 58.2 % (45.5-73.1); Platelet Count Result 145 k/mm3 (150-375); Red Blood Count 4.01 M/mm3 (4.6-6.20); Red Cell Distribution Width 15.7 % (11.5-14.5); White Blood Count 6.7 K/mm3 (4.5-10.0)
[2024-04-10 20:02] LABS: Alanine Aminotransferase 53 U/L (6-50); Albumin Level 4.1 g/dL (3.5-5.1); Alkaline Phosphatase 119 U/L (38-126); Anion Gap 10 mmol/L (4-12); Aspartate Amino Transferase 73 U/L (17-59); Bilirubin,Total 1.1 mg/dL (0.2-1.3); Blood Urea Nitrogen 7 mg/dL (9-20); Calcium 9.2 mg/dL (8.4-10.2); Carbon Dioxide 25 mmol/L (22-30); Chloride 104 mmol/L (98-107); Cholesterol 191 mg/dL (0-200); Estimated Glomerular Filt Rate > 60; Glucose 124 mg/dL (65-110); HDL Direct 64 mg/dL; Magnesium 1.7 mg/dL (1.6-2.3); Potassium 3.2 mmol/L (3.4-5.0); Sodium 139 mmol/L (137-145); Triglycerides 55 mg/dL (<150)
[2024-04-10 20:13] LABS: LDL Cholesterol Direct 119 mg/dL
[2024-04-10 20:26] LABS: Prostate Specific Antigen 0.8 ng/mL (< OR = 4.0)
[2024-04-10 20:40] LABS: Vitamin D 25 Hydroxy 25.4 ng/mL
[2024-04-10 21:11] LABS: Hemoglobin A1C 5.6 % (<5.7)
== END 2024-04-10 15:36 | disposition home or self-care (01) ==
LOC: ANHBWCLAB 15:36
PROVIDERS: PCP Nurse Practitioner Adult Health; Visit Provider Nurse Practitioner Adult Health
DX: R79.89 Other specified abnormal findings of blood chemistry (principal); I10 Essential (primary) hypertension; Z12.5 Encounter for screening for malignant neoplasm of prostate
CPT/HCPCS: 36415; 80053; 80061; 82306; 83036; 83735; 84153; 84443; 85025; G0103